=== PATIENT | female | born 1985 | race Caucasian/White ===

== ENCOUNTER 2017-12-05 09:12 | Emergency (ER) | payer BC ==
--- NOTE | 2017-12-05 10:12 | EDPHYS ---
Physician Documentation [facility] Name: Grazyna Barcenas Age: 32 yrs Sex: Female : 1985 Arrival Date: 12/05/2017 Time: 09:15 Bed 17 Private MD: Out, [facility] ED Physician Tonny Sgeura HPI: 12/05 10:01 This 32 yrs old Female presents to ER via Ambulatory with complaints of Cough.derek 10:01 The patient or guardian reports cough, that is constant. Onset: The symptoms/episode derek began/occurred today. Severity of symptoms: At their worst the symptoms were mild, moderate, in the emergency department the symptoms are unchanged. Modifying factors: The symptoms are alleviated by. Associated signs and symptoms: The patient has no apparent associated signs or symptoms. The patient has not experienced similar symptoms in the past. 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 - Social history:: Smoking status: Patient/guardian denies using tobacco. - Family history:: not pertinent. - Ebola Screening: : Patient denies travel to an Ebola-affected area in the 21 days before illness onset. ROS: 10:01 Constitutional: Negative for fever, chills, and weight loss, Eyes: Negative for injury, derek pain, redness, and discharge, ENT: Negative for injury, pain, and discharge, Neck: Negative for injury, pain, and swelling, Cardiovascular: Negative for chest pain, palpitations, and edema, Abdomen/GI: Negative for abdominal pain, nausea, vomiting, diarrhea, and constipation, Back: Negative for injury and pain, : Negative for injury, bleeding, discharge, and swelling, MS/Extremity: Negative for injury and deformity, Skin: Negative for injury, rash, and discoloration, Neuro: Negative for headache, weakness, numbness, tingling, and seizure, Psych: Negative for depression, anxiety, suicide ideation, homicidal ideation, and hallucinations, Allergy/Immunology: Negative for hives, rash, and allergies, Endocrine: Negative for neck swelling, polydipsia, polyuria, polyphagia, and marked weight changes, Hematologic/Lymphatic: Negative for swollen nodes, abnormal bleeding, and unusual bruising. 10:01 Respiratory: Positive for cough, shortness of breath, on exertion. Exam: 10:01 Constitutional: This is a well developed, well nourished patient who is awake, alert, derek and in no acute distress. Head/Face: Normocephalic, atraumatic. Eyes: Pupils equal round and reactive to light, extra-ocular motions intact. Lids and lashes normal. Conjunctiva and sclera are non-icteric and not injected. Cornea within normal limits. Periorbital areas with no swelling, redness, or edema. ENT: Nares patent. No nasal discharge, no septal abnormalities noted. Tympanic membranes are normal and external auditory canals are clear. Oropharynx with no redness, swelling, or masses, exudates, or evidence of obstruction, uvula midline. Mucous membranes moist. Neck: Trachea midline, no thyromegaly or masses palpated, and no cervical lymphadenopathy. Supple, full range of motion without nuchal rigidity, or vertebral point tenderness. No Meningismus. Chest/axilla: Normal chest wall appearance and motion. Nontender with no deformity. No lesions are appreciated. Cardiovascular: Regular rate and rhythm with a normal S1 and S2. No gallops, murmurs, or rubs. Normal PMI, no JVD. No pulse deficits. Respiratory: Lungs have equal breath sounds bilaterally, clear to auscultation and percussion. No rales, rhonchi or wheezes noted. No increased work of breathing, no retractions or nasal flaring. Abdomen/GI: Soft, non-tender, with normal bowel sounds. No distension or tympany. No guarding or rebound. No evidence of tenderness throughout. Back: No spinal tenderness. No costovertebral tenderness. Full range of motion. Skin: Warm, dry with normal turgor. Normal color with no rashes, no lesions, and no evidence of cellulitis. MS/ Extremity: Pulses equal, no cyanosis. Neurovascular intact. Full, normal range of motion. Neuro: Awake and alert, GCS 15, oriented to person, place, time, and situation. Cranial nerves II-XII grossly intact. Motor strength 5/5 in all extremities. Sensory grossly intact. Cerebellar exam normal. Normal gait. Psych: Awake, alert, with orientation to person, place and time. Behavior, mood, and affect are within normal limits. 10:01 Musculoskeletal/extremity: DVT Exam: No signs of deep vein thrombosis. no pain, no swelling, no tenderness, negative Homans' sign noted on exam, no appreciated bluish discoloration, no erythema, no increased warmth. Vital Signs: 09:23 Weight 99.79 kg; Height 5 ft. 5 in. (165.10 cm); Pain 0/10; sv 09:26 BP 130 / 95; Pulse 106; Resp 20; Temp 98.3; Pulse Ox 96% on R/A; aj1 10:26 BP 122 / 75; Pulse 102; Resp 20; Pulse Ox 96% on R/A; aj1 09:23 Body Mass Index 36.61 (99.79 kg, 165.10 cm) sv MDM: 09:22 Patient medically screened. [facility] 10:04 Data reviewed: vital signs, nurses notes, lab test result(s), urinalysis, radiologic derek studies, plain films. 12/05 10:00 Order name: Urine Dipstick--Ancillary (enter results) 12/05 10:00 Order name: Urine --Ancillary (enter results) 12/05 09:25 Order name: Urine Dipstick-Ancillary (obtain specimen); Complete Time: 09:58 [facility] 12/05 09:25 Order name: Urine Test (obtain specimen); Complete Time: 09:58 [facility] 12/05 09:25 Order name: Chest Pa And Lat (2 Views) XRAY [facility] Administered Medications: 10:26 Drug: Zithromax 500 mg Route: PO; aj1 10:27 Follow up: Response: No adverse reaction aj1 Disposition: 12/05/17 10:11 Discharged to Home. Impression: Cough, Acute upper respiratory infection, unspecified. - Condition is Stable. - Discharge Instructions: Upper Respiratory Infection, Adult, Cool Mist Vaporizers, Cough, Adult, [id number], Cough, Adult. - Prescriptions for Zofran 4 mg Oral Tablet - take 1 tablet by ORAL route every 12 hours As needed; 20 tablet. Albuterol Sulfate 90 mcg/actuation - inhale 1-2 puff by INHALATION route every 4-6 hours; 1 Inhaler. Guaifenesin AC 10- 100 mg/5 mL Oral Liquid - take 10 milliliter by ORAL route every 4 hours As needed; 240 milliliter. Zithromax 500 mg Oral Tablet - take 1 tablet by ORAL route once daily for 5 days; 5 tablet. - Medication Reconciliation Form, Thank You Letter, Antibiotic Education, Prescription Opioid Use form. - Follow up: Private Physician; When: 2 - 3 days; Reason: Recheck today's complaints, Re-evaluation by your physician. Follow up: Ronnie Gutierrez MD; When: 2 - 3 days; Reason: Recheck today's complaints, Re-evaluation by your physician. - Problem is new. - Symptoms have improved. Signatures: Dispatcher [employer] EDMS Charito He RN RN aj1 Ivette Cantu RN RN sv Anderson, Corey, MD MD cha Corrections: (The following items were deleted from the chart) 10:18 10:11 12/05/2017 10:11 Discharged to Home. Impression: Cough; Acute upper respiratory derek infection, unspecified. Condition is Stable. Forms are Medication Reconciliation Form, Thank You Letter, Antibiotic Education, Prescription Opioid Use. Follow up: Private Physician; When: 2 - 3 days; Reason: Recheck today's complaints, Re-evaluation by your physician. Problem is new. Symptoms have improved. [facility] 10:28 10:18 12/05/2017 10:11 Discharged to Home. Impression: Cough; Acute upper respiratory aj1 infection, unspecified. Condition is Stable. Discharge Instructions: Upper Respiratory Infection, Adult, Cool Mist Vaporizers, Cough, Adult, [id number], Cough, Adult. Prescriptions for Zofran 4 mg Oral Tablet - take 1 tablet by ORAL route every 12 hours As needed; 20 tablet, Albuterol Sulfate 90 mcg/actuation - inhale 1-2 puff by INHALATION route every 4-6 hours; 1 Inhaler, Guaifenesin AC 10-100 mg/5 mL Oral Liquid - take 10 milliliter by ORAL route every 4 hours As needed; 240 milliliter, Zithromax 500 mg Oral Tablet - take 1 tablet by ORAL route once daily for 5 days; 5 tablet. and Forms are Medication Reconciliation Form, Thank You Letter, Antibiotic Education, Prescription Opioid Use. Follow up: Private Physician; When: 2 - 3 days; Reason: Recheck today's complaints, Re-evaluation by your physician. Follow up: Ronnie Gutierrez; When: 2 - 3 days; Reason: Recheck today's complaints, Re-evaluation by your physician. Problem is new. Symptoms have improved. derek
--- NOTE | 2017-12-05 10:12 | ER ---
Nurse's Notes [facility] Name: Grazyna Barcenas Age: 32 yrs Sex: Female : 1985 Arrival Date: 12/05/2017 Time: 09:15 Bed 17 Private MD: Out, [facility] Diagnosis: Cough;Acute upper respiratory infection, unspecified Presentation: 12/05 09:20 Presenting complaint: Patient states: "Haven't stopped coughing since 0400 today.". sv Transition of care: patient was not received from another setting of care. Onset of symptoms was December 05, 2017. Care prior to arrival: None. 09:20 Method Of Arrival: Ambulatory sv 09:20 Acuity: LYDIA 3 sv 10:27 Risk Assessment: Do you want to hurt yourself or someone else? Patient reports no aj1 desire to harm self or others. Initial Sepsis Screen: Does the patient meet any 2 criteria? No. Patient's initial sepsis screen is negative. Does the patient have a suspected source of infection? No. Patient's initial sepsis screen is negative. 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 - Social history:: Smoking status: Patient/guardian denies using tobacco. - Family history:: not pertinent. - Ebola Screening: : Patient denies travel to an Ebola-affected area in the 21 days before illness onset. Screenin:26 Abuse screen: Denies threats or abuse. Denies injuries from another. Nutritional aj1 screening: No deficits noted. Tuberculosis screening: No symptoms or risk factors identified. 10:26 Fall Risk None identified. aj1 Assessment: 09:26 General: Appears in no apparent distress. uncomfortable, Behavior is calm, cooperative, aj1 appropriate for age. Pain: Complains of pain in chest and abdomen Pain does not radiate. Pain currently is 2 out of 10 on a pain scale. Quality of pain is described as soreness. Neuro: Level of Consciousness is awake, alert, obeys commands, Oriented to person, place, time, situation, Speech is normal, Facial symmetry appears normal. Cardiovascular: Patient's skin is warm and dry. Respiratory: Reports shortness of breath when coughing cough that is hacking, persistent Airway is patent Respiratory effort is even, unlabored, Respiratory pattern is regular, symmetrical, Breath sounds are coarse in left posterior lower lobe and right posterior lower lobe. GI: Abdomen is non-distended, Reports diarrhea, Patient currently denies nausea, vomiting. : No signs and/or symptoms were reported regarding the genitourinary system. EENT: No signs and/or symptoms were reported regarding the EENT system. Derm: No signs and/or symptoms reported regarding the dermatologic system. Skin is pink, warm \\T\\ dry. normal. Musculoskeletal: No signs and/or symptoms reported regarding the musculoskeletal system. Circulation, motion, and sensation intact. 10:26 Reassessment: Patient appears in no apparent distress at this time. No changes from aj1 previously documented assessment. Patient and/or family updated on plan of care and expected duration. Pain level reassessed. Patient is alert, oriented x 3, equal unlabored respirations, skin warm/dry/pink. Vital Signs: 09:23 Weight 99.79 kg; Height 5 ft. 5 in. (165.10 cm); Pain 0/10; sv 09:26 BP 130 / 95; Pulse 106; Resp 20; Temp 98.3; Pulse Ox 96% on R/A; aj1 10:26 BP 122 / 75; Pulse 102; Resp 20; Pulse Ox 96% on R/A; aj1 09:23 Body Mass Index 36.61 (99.79 kg, 165.10 cm) sv ED Course: 09:15 Patient arrived in ED. sb2 09:15 Out, [facility] is Private Physician. sb2 09:21 Charito He, SAIDA is Primary Nurse. aj1 09:22 Tonny Segura MD is Attending Physician. derek 09:22 Triage completed. sv 09:23 Arm band placed on right wrist. sv 09:26 Patient has correct armband on for positive identification. Bed in low position. Call aj1 light in reach. Side rails up X 1. 09:26 No provider procedures requiring assistance completed. aj1 09:32 Patient moved to radiology via wheelchair. jb2 09:36 X-ray completed. Patient tolerated procedure well. Patient moved back from radiology. jb2 09:37 Chest Pa And Lat (2 Views) XRAY In Process Unspecified. EDMS 09:59 Pulse ox on. NIBP on. mh5 09:59 Urine collected: clean catch specimen, clear. 5 10:18 Ronnie Gutierrez MD is Referral Physician. [facility] 10:26 Patient did not have IV access during this emergency room visit. aj1 Administered Medications: 10:26 Drug: Zithromax 500 mg Route: PO; aj1 10:27 Follow up: Response: No adverse reaction aj1 Outcome: 10:11 Discharge ordered by . [facility] 10:26 Discharged to home ambulatory. aj1 10:26 Condition: good 10:26 Discharge instructions given to patient, Instructed on discharge instructions, follow up and referral plans. no drinking with medication, no driving heavy equipment, medication usage, Demonstrated understanding of instructions, follow-up care, medications, Prescriptions given X 4. 10:28 Patient left the ED. aj1 Signatures: Dispatcher [employer] Charito Chen RN RN aj1 Ivette Cantu, Tonny Saavedra RN, MD MD cha Buechter, Jesse jb2 Martinez, Maria Margret Andrews2
--- NOTE | 2017-12-05 10:17 | RAD REPORT ---
EXAM DESCRIPTION: Naresh Hinton (2 Views)12/05/2017 9:39 am CLINICAL HISTORY: Cough COMPARISON: 2012 PET-CT scan and 2017 chest x-ray FINDINGS: The lungs appear clear of acute infiltrate. The patient's previously described [address] nodule within the inferior right lower lobe seen on the 2012 exam is not visualized on the curren t exam but could be missed secondary to its location. The heart is normal size IMPRESSION: No acute abnormalities displayed
[2017-12-05 10:24] LABS: Urine Blood NEGATIVE (NEG); Urine Glucose NEGATIVE (NEG); Urine Protein NEGATIVE (NEG); Urine Specific Gravity 1.015 (1.005-1.030); Urine pH 6.5 (5.0-7.0)
[2017-12-05] MEDS ORDERED: AZITHROMYCIN 250 MG TAB ONE (10:24)
== END 2017-12-05 10:28 | disposition home or self-care (01) ==
LOC: ER 09:12
DX: R05 Cough (principal); J06.9 Acute upper respiratory infection, unspecified; Z88.8 Allergy status to other drugs, medicaments and biological substances
CPT/HCPCS: 71046; 81003; 81025; 99284

== ENCOUNTER 2018-05-16 02:16 | Emergency (ER) | payer BC ==
[2018-05-16] MEDS ORDERED: IBUPROFEN 400 MG TAB ONE (03:00)
[2018-05-16] MEDS ORDERED: IBUPROFEN 200 MG TAB PO ONE (03:01)
[2018-05-16] MEDS ORDERED: ACETAMINOPHEN 500 MG TAB ONE (03:01)
--- NOTE | 2018-05-16 03:32 | EDPHYS ---
Physician Documentation [facility] Name: Grazyna Barcenas Age: 32 yrs Sex: Female : 1985 Arrival Date: 05/16/2018 Time: 02:21 Bed 18 Private MD: ED Physician Curtis Mast HPI: 05/16 02:50 This 32 yrs old Female presents to ER via Ambulatory with complaints of Hand wa Pain. 02:50 The patient or guardian reports pain. The complaints affect the knuckles of 2nd and 3rd wa fingers. Context: The problem was sustained at work, resulted from an unknown cause. Onset: The symptoms/episode began/occurred 3 day(s) ago. Modifying factors: The symptoms are alleviated by nothing, the symptoms are aggravated by movement. Associated signs and symptoms: The patient has no apparent associated signs or symptoms. Severity of symptoms: At their worst the symptoms were moderate, in the emergency department the symptoms are unchanged. The patient has not experienced similar symptoms in the past. The patient has not recently seen a physician. 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 - Social history:: Smoking status: Patient/guardian denies using tobacco. - Ebola Screening: : No symptoms or risks identified at this time. - Family history:: not pertinent. - Hospitalizations: : No recent hospitalization is reported. ROS: 02:52 Constitutional: Negative for fever, chills, and weight loss, Eyes: Negative for injury, wa pain, redness, and discharge, ENT: Negative for injury, pain, and discharge, Neck: Negative for injury, pain, and swelling, Cardiovascular: Negative for chest pain, palpitations, and edema, Respiratory: Negative for shortness of breath, cough, wheezing, and pleuritic chest pain, Abdomen/GI: Negative for abdominal pain, nausea, vomiting, diarrhea, and constipation, Back: Negative for injury and pain, : Negative for injury, bleeding, discharge, and swelling, Skin: Negative for injury, rash, and discoloration, Neuro: Negative for headache, weakness, numbness, tingling, and seizure, Psych: Negative for depression, anxiety, suicide ideation, homicidal ideation, and hallucinations. 02:52 MS/extremity: Positive for pain, tenderness, of the knuckle of 2nd and 3rd fingers on the R hand. 02:52 All other systems are negative. Exam: 02:53 Constitutional: This is a well developed, well nourished patient who is awake, alert, wa and in no acute distress. Head/Face: Normocephalic, atraumatic. Eyes: Pupils equal round and reactive to light, extra-ocular motions intact. Lids and lashes normal. Conjunctiva and sclera are non-icteric and not injected. Cornea within normal limits. Periorbital areas with no swelling, redness, or edema. ENT: Nares patent. No nasal discharge, no septal abnormalities noted. Tympanic membranes are normal and external auditory canals are clear. Oropharynx with no redness, swelling, or masses, exudates, or evidence of obstruction, uvula midline. Mucous membranes moist. Neck: Trachea midline, no thyromegaly or masses palpated, and no cervical lymphadenopathy. Supple, full range of motion without nuchal rigidity, or vertebral point tenderness. No Meningismus. Chest/axilla: Normal chest wall appearance and motion. Nontender with no deformity. No lesions are appreciated. Cardiovascular: Regular rate and rhythm with a normal S1 and S2. No gallops, murmurs, or rubs. Normal PMI, no JVD. No pulse deficits. Respiratory: Lungs have equal breath sounds bilaterally, clear to auscultation and percussion. No rales, rhonchi or wheezes noted. No increased work of breathing, no retractions or nasal flaring. Abdomen/GI: Soft, non-tender, with normal bowel sounds. No distension or tympany. No guarding or rebound. No evidence of tenderness throughout. Back: No spinal tenderness. No costovertebral tenderness. Full range of motion. Skin: Warm, dry with normal turgor. Normal color with no rashes, no lesions, and no evidence of cellulitis. Neuro: Awake and alert, GCS 15, oriented to person, place, time, and situation. Cranial nerves II-XII grossly intact. Motor strength 5/5 in all extremities. Sensory grossly intact. Cerebellar exam normal. Normal gait. Psych: Awake, alert, with orientation to person, place and time. Behavior, mood, and affect are within normal limits. 02:53 Musculoskeletal/extremity: Extremities: grossly normal except: noted in the MCP 2nd and 3rd finger: pain, tenderness, tenderness. Vital Signs: 02:35 BP 120 / 82; Pulse 70; Resp 17 S; Temp 98.5(O); Pulse Ox 99% on R/A; Weight 99.79 kg jd3 (R); Height 5 ft. 5 in. (165.10 cm) (R); Pain 10/10; 03:55 BP 112 / 77; Pulse 72; Resp 16 S; Pulse Ox 99% on R/A; jd3 02:35 Body Mass Index 36.61 (99.79 kg, 165.10 cm) jd3 MDM: 02:43 Patient medically screened. tn 02:54 Differential diagnosis: closed fracture, contusion, tendonitis, pain control. check tn x-rays. reassess. 03:29 Data reviewed: vital signs, nurses notes, radiologic studies. Test interpretation: by tn ED physician or midlevel provider: R hand x-ray: no acute process. Response to treatment: the patient's symptoms have markedly improved after treatment. 05/16 02:49 Order name: Hand Right 3 View XRAY tn 05/16 03:34 Order name: Splint - Wrist: place on Right wrist and hand; Complete Time: 03:37 tn Administered Medications: 02:55 Drug: Motrin 600 mg Route: PO; jd3 03:56 Follow up: Response: No adverse reaction jd3 02:55 Drug: Tylenol 1000 mg Route: PO; jd3 03:56 Follow up: Response: No adverse reaction jd3 Disposition: 05/16/18 03:31 Discharged to Home. Impression: Acute Right Hand Pain. - Condition is Stable. - Prescriptions for Ibuprofen 600 mg Oral Tablet - take 1 tablet by ORAL route every 6 hours As needed take with food; 30 tablet. - Medication Reconciliation Form, Thank You Letter, Antibiotic Education, Prescription Opioid Use, Work release form form. - Follow up: Krishna Mcleod MD; When: 2 - 3 days; Reason: Recheck today's complaints. - Problem is new. - Symptoms have improved. - Notes: wear splint for comfort. follow up with the bone doctor as discussed for further evaluation Signatures: Dispatcher [employer] EDMS Curtis Mast MD MD wa Davies, Jonathon RN RN jd3 Corrections: (The following items were deleted from the chart) 03:56 03:31 05/16/2018 03:31 Discharged to Home. Impression: Acute Right Hand Pain. Condition jd3 is Stable. Forms are Medication Reconciliation Form, Thank You Letter, Antibiotic Education, Prescription Opioid Use. Follow up: Krishna Mcleod; When: 2 - 3 days; Reason: Recheck today's complaints. Problem is new. Symptoms have improved. aleksandar
--- NOTE | 2018-05-16 03:32 | ER ---
Nurse's Notes [facility] Name: Grazyna Barcenas Age: 32 yrs Sex: Female : 1985 Arrival Date: 05/16/2018 Time: 02:21 Bed 18 Private MD: Diagnosis: Acute Right Hand Pain Presentation: 05/16 02:31 Presenting complaint: Patient states: "Last Tuesday I was at work and it just all of a jd3 sudden felt like I pulled something in my right hand. the pain has gotten progressively worse to the point that today I can't pick anything up and it gave out on me. 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 Transition of care: patient was not received from another setting of care. Onset of symptoms was May 16, 2018. Risk Assessment: Do you want to hurt yourself or someone else? Patient reports no desire to harm self or others. Initial Sepsis Screen: Does the patient meet any 2 criteria? No. Patient's initial sepsis screen is negative. Does the patient have a suspected source of infection? No. Patient's initial sepsis screen is negative. Care prior to arrival: None. 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 - Social history:: Smoking status: Patient/guardian denies using tobacco. - Ebola Screening: : No symptoms or risks identified at this time. - Family history:: not pertinent. - Hospitalizations: : No recent hospitalization is reported. Screenin:44 Abuse screen: Denies threats or abuse. Nutritional screening: No deficits noted. jd3 Tuberculosis screening: No symptoms or risk factors identified. Fall Risk Ambulatory Aid- None/Bed Rest/Nurse Assist (0 pts). Gait- Normal/Bed Rest/Wheelchair (0 pts) Mental Status- Oriented to own ability (0 pts). Total Alfonso Fall Scale indicates No Risk (0-24 pts). Assessment: 02:36 General: Appears in no apparent distress. uncomfortable, Behavior is calm, cooperative, jd3 appropriate for age. Pain: Complains of pain in right hand Quality of pain is described as sharp, tender, Aggravated by increased activity, repositioning. Neuro: Level of Consciousness is awake, alert, obeys commands, Oriented to person, place, time, situation. Cardiovascular: Capillary refill < 3 seconds Patient's skin is warm and dry. Respiratory: Airway is patent Respiratory effort is even, unlabored, Respiratory pattern is regular, symmetrical. GI: No signs and/or symptoms were reported involving the gastrointestinal system. : No signs and/or symptoms were reported regarding the genitourinary system. EENT: No signs and/or symptoms were reported regarding the EENT system. Derm: Skin is intact, Skin is dry, Skin is normal, Skin temperature is warm. Musculoskeletal: Circulation, motion, and sensation intact. Range of motion: limited in right hand Swelling present in right hand. 03:55 Reassessment: Patient appears in no apparent distress at this time. Patient and/or jd3 family updated on plan of care and expected duration. Pain level reassessed. Patient is alert, oriented x 3, equal unlabored respirations, skin warm/dry/pink. Vital Signs: 02:35 BP 120 / 82; Pulse 70; Resp 17 S; Temp 98.5(O); Pulse Ox 99% on R/A; Weight 99.79 kg jd3 (R); Height 5 ft. 5 in. (165.10 cm) (R); Pain 10/10; 03:55 BP 112 / 77; Pulse 72; Resp 16 S; Pulse Ox 99% on R/A; jd3 02:35 Body Mass Index 36.61 (99.79 kg, 165.10 cm) jd3 ED Course: 02:21 Patient arrived in ED. am2 02:31 Maged Yung RN is Primary Nurse. jd3 02:34 Triage completed. jd3 02:36 Arm band placed on. jd3 02:43 Curtis Mast MD is Attending Physician. wa 02:44 Patient has correct armband on for positive identification. Bed in low position. Call jd3 light in reach. Side rails up X 1. 03:30 Krishna Mcleod MD is Referral Physician. 03:53 Hand Right 3 View XRAY In Process Unspecified. EDMS 03:55 No provider procedures requiring assistance completed. Patient did not have IV access jd3 during this emergency room visit. 03:56 Velcro wrist splint applied to right wrist. jd3 Administered Medications: 02:55 Drug: Motrin 600 mg Route: PO; jd3 03:56 Follow up: Response: No adverse reaction jd3 02:55 Drug: Tylenol 1000 mg Route: PO; jd3 03:56 Follow up: Response: No adverse reaction jd3 Outcome: 03:31 Discharge ordered by . 03:55 Discharged to home ambulatory. jd3 03:55 Condition: stable 03:55 Discharge instructions given to patient, Instructed on discharge instructions, follow up and referral plans. medication usage, Demonstrated understanding of instructions, follow-up care, medications, Prescriptions given X 1. 03:56 Patient left the ED. jd3 Signatures: Dispatcher [employer] EDWA Cristina Nicholas am2 Curtis Mast MD MD wa Davies, Jonathon, RN RN jd3
--- NOTE | 2018-05-16 08:34 | RAD REPORT ---
EXAM DESCRIPTION: RAD - Hand Right 3 View - 05/16/2018 3:52 am CLINICAL HISTORY: Nontraumatic right hand pain. Patient localizes the pain to the second and third M CP joint region COMPARISON: None. FINDINGS: No fracture is identified. There is no dislocation or periosteal reaction noted. No joint space narrowing, spurring or erosive change at any of the MCP joints. Patient has a congenitally guilherme rtened first distal phalanx. No IP joint space narrowing or acute finding. Soft tissues over the dorsum of the third MCP joint are prominent. No air or foreign body in the soft tissues. IMPRESSION: Mild soft tissue swelling in the region of the third MCP joint. No acute or suspicious b one or joint finding.
== END 2018-05-16 03:56 | disposition home or self-care (01) ==
LOC: ER 02:16
DX: M79.641 Pain in right hand (principal); M79.9 Soft tissue disorder, unspecified; X58.XXXA Exposure to other specified factors, initial encounter; Y99.0 Civilian activity done for income or pay
CPT/HCPCS: 99284

== ENCOUNTER 2018-11-10 21:17 | Emergency (ER) | payer BC ==
[2018-11-10] MEDS ORDERED: IBUPROFEN 100 MG/5 ML UCUP ONE (22:20)
[2018-11-10] MEDS ORDERED: DEXAMETHASONE 10 MG/ML VIAL ONE (22:20)
--- NOTE | 2018-11-10 22:39 | ER ---
Nurse's Notes [facility] Name: Grazyna Barcenas Age: 33 yrs Sex: Female : 1985 Arrival Date: 11/10/2018 Time: 21:20 Bed 15 Private MD: Out, [facility] Diagnosis: Acute pharyngitis Presentation: 11/10 21:42 Presenting complaint: Patient states: via written note itchy throat not bad last two ed1 days. lil dirare. This morning like this can't talk, no food, hurts to swollow, forced water down to stay hydrated. Fever at 7:30 pm took asprin, still cold. Transition of care: patient was not received from another setting of care. Onset of symptoms was November 10, 2018. Risk Assessment: Do you want to hurt yourself or someone else? Patient reports no desire to harm self or others. Initial Sepsis Screen: Does the patient meet any 2 criteria? No. Patient's initial sepsis screen is negative. Does the patient have a suspected source of infection? No. Patient's initial sepsis screen is negative. Care prior to arrival: Medication(s) given: ASA. 21:42 Method Of Arrival: Ambulatory ed1 21:42 Acuity: LYDIA 4 ed1 Triage Assessment: 21:44 General: Appears uncomfortable, Behavior is calm, cooperative. Pain: Complains of pain ed1 in throat Pain currently is 10 out of 10 on a pain scale. EENT: Throat is reddened. Neuro: Level of Consciousness is awake, alert, obeys commands, Oriented to person, place, time, situation. Cardiovascular: Denies chest pain, Heart tones S1 S2 present. Respiratory: Airway is patent Respiratory effort is even, unlabored, Respiratory pattern is regular, symmetrical, Breath sounds are clear bilaterally. GI: No signs and/or symptoms were reported involving the gastrointestinal system. : No signs and/or symptoms were reported regarding the genitourinary system. Derm: Skin is intact, is healthy with good turgor, Skin is dry, Skin is normal, Skin temperature is warm. Musculoskeletal: Circulation, motion, and sensation intact. Range of motion: intact in all extremities. 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 - Social history:: Smoking status: Patient/guardian denies using tobacco. - Ebola Screening: : Patient negative for fever greater than or equal to 101.5 degrees Fahrenheit, and additional compatible Ebola Virus Disease symptoms Patient denies exposure to infectious person Patient denies travel to an Ebola-affected area in the 21 days before illness onset No symptoms or risks identified at this time. Screenin:45 Abuse screen: Denies threats or abuse. Denies injuries from another. Nutritional ed1 screening: No deficits noted. Tuberculosis screening: No symptoms or risk factors identified. Fall Risk None identified. Assessment: 21:45 General: See triage assessment. Respiratory: Airway is patent Respiratory effort is ed1 even, unlabored, Respiratory pattern is regular, symmetrical, Breath sounds are clear bilaterally. 23:17 Reassessment: Patient appears in no apparent distress at this time. Patient and/or ed1 family updated on plan of care and expected duration. Pain level reassessed. Patient is alert, oriented x 3, equal unlabored respirations, skin warm/dry/pink. Patient states feeling better. Patient states symptoms have improved. Vital Signs: 21:44 BP 128 / 74; Pulse 87; Resp 18; Temp 98.3; Pulse Ox 96% on R/A; Weight 90.72 kg; Height ed1 5 ft. 5 in. (165.10 cm); Pain 10/10; 23:17 BP 124 / 87; Pulse 73; Resp 19; Temp 98.1(TE); Pulse Ox 99% on R/A; Pain 10/10; ed1 21:44 Body Mass Index 33.28 (90.72 kg, 165.10 cm) ed1 ED Course: 21:20 Patient arrived in ED. es 21:20 Out, of [facility] is Private Physician. es 21:34 Crys Sterling F[facility]-C [facility]. snw 21:34 Aj Mejia MD is Attending Physician. snw 21:41 Guidry, Charmaine, RN is Primary Nurse. ed1 21:44 Triage completed. ed1 21:44 Arm band placed on. ed1 21:45 Patient has correct armband on for positive identification. Bed in low position. Call ed1 light in reach. 23:17 No provider procedures requiring assistance completed. Patient did not have IV access ed1 during this emergency room visit. Administered Medications: 22:08 Drug: Decadron - Dexamethasone 10 mg {Note: Given PO per order.} Route: IVP; Site: ed1 Other; 22:30 Follow up: Response: No adverse reaction ed1 22:08 Drug: Motrin Suspension 10 ml Route: PO; ed1 22:30 Follow up: Response: No adverse reaction ed1 Outcome: 22:38 Discharge ordered by MD. souza 23:17 Discharged to home ambulatory. ed1 23:17 Condition: good 23:17 Discharge instructions given to patient, Instructed on discharge instructions, follow up and referral plans. Demonstrated understanding of instructions, follow-up care. 23:18 Patient left the ED. ed1 Signatures: Crys Sterling FNP-C MOLD REPAIR TECHNICIAN-[place] Lara Dillon Erika, RN RN ed1
--- NOTE | 2018-11-10 22:39 | EDPHYS ---
Physician Documentation [facility] Name: Grazyna Barcenas Age: 33 yrs Sex: Female : 1985 Arrival Date: 11/10/2018 Time: 21:20 Bed 15 Private MD: Out, [facility] ED Physician Aj Mejia HPI: 11/10 22:44 This 33 yrs old Female presents to ER via Ambulatory with complaints of Sore snw Throat. 22:44 The patient presents with sore throat. The patient describes throat pain as raw, snw scratchy. Onset: The symptoms/episode began/occurred suddenly, 4 day(s) ago, and became persistent. Severity of symptoms: At their worst the symptoms were moderate. Associated signs and symptoms: Pertinent positives: dysphagia, fever, flu-like symptoms, nausea, Sore throat vomiting. The patient has not experienced similar symptoms in the past, but family has similar symptoms. The patient has not recently seen a physician. 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 - Social history:: Smoking status: Patient/guardian denies using tobacco. - Ebola Screening: : Patient negative for fever greater than or equal to 101.5 degrees Fahrenheit, and additional compatible Ebola Virus Disease symptoms Patient denies exposure to infectious person Patient denies travel to an Ebola-affected area in the 21 days before illness onset No symptoms or risks identified at this time. ROS: 22:42 Eyes: Negative for injury, pain, redness, and discharge, Neck: Negative for injury, snw pain, and swelling, Cardiovascular: Negative for chest pain, palpitations, and edema, Respiratory: Negative for shortness of breath, cough, wheezing, and pleuritic chest pain, Abdomen/GI: Negative for abdominal pain, positive for nausea, vomiting, diarrhea, no constipation, Back: Negative for injury and pain, : Negative for injury, bleeding, discharge, and swelling, MS/Extremity: Negative for injury and deformity, Skin: Negative for injury, rash, and discoloration, Neuro: Negative for headache, weakness, numbness, tingling, and seizure. 22:42 Constitutional: Positive for body aches, malaise, poor PO intake. 22:42 ENT: Positive for sinus congestion, sore throat. Exam: 22:42 Constitutional: This is a well developed, well nourished patient who is awake, alert, snw and in no acute distress. Head/Face: Normocephalic, atraumatic. Eyes: Pupils equal round and reactive to light, extra-ocular motions intact. Lids and lashes normal. Conjunctiva and sclera are non-icteric and not injected. Cornea within normal limits. Periorbital areas with no swelling, redness, or edema. Neck: Trachea midline, no thyromegaly or masses palpated, and no cervical lymphadenopathy. Supple, full range of motion without nuchal rigidity, or vertebral point tenderness. No Meningismus. Chest/axilla: Normal chest wall appearance and motion. Nontender with no deformity. No lesions are appreciated. Cardiovascular: Regular rate and rhythm with a normal S1 and S2. No gallops, murmurs, or rubs. Normal PMI, no JVD. No pulse deficits. Respiratory: Lungs have equal breath sounds bilaterally, clear to auscultation and percussion. No rales, rhonchi or wheezes noted. No increased work of breathing, no retractions or nasal flaring. Abdomen/GI: Soft, non-tender, with normal bowel sounds. No distension or tympany. No guarding or rebound. No evidence of tenderness throughout. Back: No spinal tenderness. No costovertebral tenderness. Full range of motion. Skin: Warm, dry with normal turgor. Normal color with no rashes, no lesions, and no evidence of cellulitis. MS/ Extremity: Pulses equal, no cyanosis. Neurovascular intact. Full, normal range of motion. Neuro: Awake and alert, GCS 15, oriented to person, place, time, and situation. Cranial nerves II-XII grossly intact. Motor strength 5/5 in all extremities. Sensory grossly intact. Cerebellar exam normal. Normal gait. Psych: Awake, alert, with orientation to person, place and time. Behavior, mood, and affect are within normal limits. 22:42 ENT: External ear(s): are unremarkable, Ear canal(s): are normal, TM's: are normal, Nose: is normal, Posterior pharynx: erythema, that is moderate, that is marked, Voice: is normal. Vital Signs: 21:44 BP 128 / 74; Pulse 87; Resp 18; Temp 98.3; Pulse Ox 96% on R/A; Weight 90.72 kg; Height ed1 5 ft. 5 in. (165.10 cm); Pain 10/10; 23:17 BP 124 / 87; Pulse 73; Resp 19; Temp 98.1(TE); Pulse Ox 99% on R/A; Pain 10/10; ed1 21:44 Body Mass Index 33.28 (90.72 kg, 165.10 cm) ed1 MDM: 21:42 Patient medically screened. snw 22:43 Data reviewed: vital signs, nurses notes. Data interpreted: Pulse oximetry: on room air snw is 96 %. Interpretation: acceptable. Counseling: I had a detailed discussion with the patient and/or guardian regarding: the historical points, exam findings, and any diagnostic results supporting the discharge/admit diagnosis, lab results, the need for outpatient follow up, to return to the emergency department if symptoms worsen or persist or if there are any questions or concerns that arise at home. 11/10 21:39 Order name: Strep; Complete Time: 22:20 snw 11/10 21:52 Order name: Flu; Complete Time: 22:37 ed1 11/10 22:22 Order name: Throat Culture EDMS Administered Medications: 22:08 Drug: Decadron - Dexamethasone 10 mg {Note: Given PO per order.} Route: IVP; Site: ed1 Other; 22:30 Follow up: Response: No adverse reaction ed1 22:08 Drug: Motrin Suspension 10 ml Route: PO; ed1 22:30 Follow up: Response: No adverse reaction ed1 Disposition: 11/10/18 22:38 Discharged to Home. Impression: Acute pharyngitis. - Condition is Stable. - Discharge Instructions: Fever, Adult, Pharyngitis, Rehydration, Adult. - Work release form, Medication Reconciliation Form, Thank You Letter, Antibiotic Education, Prescription Opioid Use form. - Follow up: Private Physician; When: 2 - 3 days; Reason: Recheck today's complaints, Continuance of care, Re-evaluation by your physician. Follow up: Emergency Department; When: As needed; Reason: Worsening of condition. Signatures: Dispatcher [employer] Crys Baird, KAREY-C PUBLIC ADDRESS ANNOUNCER-[place] Charmaine Guidry, RN RN ed1 Corrections: (The following items were deleted from the chart) 23:18 22:38 11/10/2018 22:38 Discharged to Home. Impression: Acute pharyngitis. Condition is ed1 Stable. Forms are Medication Reconciliation Form, Thank You Letter, Antibiotic Education, Prescription Opioid Use. Follow up: Private Physician; When: 2 - 3 days; Reason: Recheck today's complaints, Continuance of care, Re-evaluation by your physician. Follow up: Emergency Department; When: As needed; Reason: Worsening of condition. snw
== END 2018-11-10 23:18 | disposition home or self-care (01) ==
LOC: ER 21:17
DX: J02.9 Acute pharyngitis, unspecified (principal); Z88.8 Allergy status to other drugs, medicaments and biological substances
CPT/HCPCS: 87070; 87081; 87804; 96374; 99283; J1100

== ENCOUNTER 2018-11-22 19:31 | Emergency (ER) | payer BC ==
--- NOTE | 2018-11-22 20:35 | RAD REPORT ---
EXAM DESCRIPTION: RAD - Foot Left 3 View - 11/22/2018 8:10 pm CLINICAL HISTORY: Left foot pain following trauma COMPARISON: None. FINDINGS: No fracture, dislocation or periosteal reaction. No acute or destructive bony process. Sm all plantar spur is present. No air or foreign body in the soft tissues. IMPRESSION: Negative left foot examination for acute finding.
--- NOTE | 2018-11-22 20:44 | EDPHYS ---
Physician Documentation [facility] Name: Grazyna Barcenas Age: 33 yrs Sex: Female : 1985 Arrival Date: 11/22/2018 Time: 19:36 Bed 19 Private MD: ED Physician Nir Martinez HPI: 11/22 23:59 This 33 yrs old Female presents to ER via Wheelchair with complaints of Foot snw Injury. 23:59 The patient presents with decreased range of motion, pain, that is acute. The snw complaints affect the dorsum of left foot. Context: The problem was sustained at home, resulted from the patient falling, down stairs, the patient can partially bear weight, must have assistance, Problem is a result from a previous injury: No. Onset: The symptoms/episode began/occurred suddenly, today. Associated signs and symptoms: Pertinent positives: swelling, of the dorsum of left foot. Severity of symptoms: At their worst the symptoms were moderate. It is unknown whether or not the patient has had similar symptoms in the past. It is unknown whether or not the patient has recently seen a physician. pt up on a ladder, ladder fell and pt landed on both feet and then fell to left and sat. Pt states at first she was able to bear weight and walk but then she took a shower and was resting and was unable to bear weight when she stood again. 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 - Social history:: Smoking status: Patient/guardian denies using tobacco. - Ebola Screening: : No symptoms or risks identified at this time. ROS: 23:58 Constitutional: Negative for fever, chills, and weight loss, Eyes: Negative for injury, snw pain, redness, and discharge, ENT: Negative for injury, pain, and discharge, Neck: Negative for injury, pain, and swelling, Cardiovascular: Negative for chest pain, palpitations, and edema, Respiratory: Negative for shortness of breath, cough, wheezing, and pleuritic chest pain, Abdomen/GI: Negative for abdominal pain, nausea, vomiting, diarrhea, and constipation, Back: Negative for injury and pain, : Negative for injury, bleeding, discharge, and swelling, Skin: Negative for injury, rash, and discoloration, Neuro: Negative for headache, weakness, numbness, tingling, and seizure. 23:58 MS/extremity: Positive for injury or acute deformity, decreased range of motion, pain, swelling, of the left foot. Exam: 23:57 Constitutional: This is a well developed, well nourished patient who is awake, alert, snw and in no acute distress. Head/Face: Normocephalic, atraumatic. Eyes: Pupils equal round and reactive to light, extra-ocular motions intact. Lids and lashes normal. Conjunctiva and sclera are non-icteric and not injected. Cornea within normal limits. Periorbital areas with no swelling, redness, or edema. ENT: Nares patent. No nasal discharge, no septal abnormalities noted. Tympanic membranes are normal and external auditory canals are clear. Oropharynx with no redness, swelling, or masses, exudates, or evidence of obstruction, uvula midline. Mucous membranes moist. Neck: Trachea midline, no thyromegaly or masses palpated, and no cervical lymphadenopathy. Supple, full range of motion without nuchal rigidity, or vertebral point tenderness. No Meningismus. Chest/axilla: Normal chest wall appearance and motion. Nontender with no deformity. No lesions are appreciated. Cardiovascular: Regular rate and rhythm with a normal S1 and S2. No gallops, murmurs, or rubs. Normal PMI, no JVD. No pulse deficits. Respiratory: Lungs have equal breath sounds bilaterally, clear to auscultation and percussion. No rales, rhonchi or wheezes noted. No increased work of breathing, no retractions or nasal flaring. Abdomen/GI: Soft, non-tender, with normal bowel sounds. No distension or tympany. No guarding or rebound. No evidence of tenderness throughout. Back: No spinal tenderness. No costovertebral tenderness. Full range of motion. Skin: Warm, dry with normal turgor. Normal color with no rashes, no lesions, and no evidence of cellulitis. Neuro: Awake and alert, GCS 15, oriented to person, place, time, and situation. Cranial nerves II-XII grossly intact. Motor strength 5/5 in all extremities. Sensory grossly intact. Cerebellar exam normal. Normal gait. Psych: Awake, alert, with orientation to person, place and time. Behavior, mood, and affect are within normal limits. 23:57 Musculoskeletal/extremity: Extremities: grossly normal except: noted in the dorsum of left foot: pain, ROM: intact in all extremities, Circulation is intact in all extremities. the dorsum of left foot Severe pain noted. Joints: All joints appear normal with full range of motion. Weight bearing: is unable to bear weight. Vital Signs: 19:39 BP 125 / 65; Pulse 101; Resp 18; Temp 99(TE); Pulse Ox 97% on R/A; Weight 90.72 kg; lp1 Height 5 ft. 5 in. (165.10 cm); Pain 10/10; 20:45 BP 134 / 73; Pulse 83; Resp 16; Pulse Ox 100% on R/A; jb4 19:39 Body Mass Index 33.28 (90.72 kg, 165.10 cm) lp1 MDM: 20:38 Patient medically screened. snw 23:58 Data reviewed: vital signs, nurses notes. Data interpreted: Pulse oximetry: on room air snw is 97 %. Interpretation: normal. Counseling: I had a detailed discussion with the patient and/or guardian regarding: the historical points, exam findings, and any diagnostic results supporting the discharge/admit diagnosis, radiology results, the need for outpatient follow up, to return to the emergency department if symptoms worsen or persist or if there are any questions or concerns that arise at home. Special discussion: Based on the history and exam findings, there is no indication for further emergent testing or inpatient evaluation. I discussed with the patient/guardian the need to see the orthopedic surgeon for further evaluation of the symptoms. 11/22 19:44 Order name: Foot Left 3 View XRAY; Complete Time: 20:38 snw 11/22 20:43 Order name: Walking boot; Complete Time: 21:01 snw Administered Medications: 21:01 Drug: [place] 5 mg-325 mg 1 tabs Route: PO; jb4 21:01 Follow up: Response: Medication administered at discharge. jb4 Disposition: 11/23 00:42 Co-signature as Attending Physician, Nir Martinez MD. rn Disposition: 11/22/18 20:44 Discharged to Home. Impression: Sprain of foot, Fall (on) (from) unspecified stairs and steps - ladder. - Condition is Stable. - Discharge Instructions: Foot Sprain, Sunburn, Adult. - Prescriptions for Diclofenac Sodium 75 mg Oral Tablet Sustained Release - take 1 tablet by ORAL route 2 times per day; 30 tablet. - Work release form, Medication Reconciliation Form, Thank You Letter, Antibiotic Education, Prescription Opioid Use form. - Follow up: Private Physician; When: 2 - 3 days; Reason: Recheck today's complaints, Continuance of care, Re-evaluation by your physician. Follow up: Emergency Department; When: As needed; Reason: Worsening of condition. Signatures: Dispatcher [employer] EDMS Crys Sterling, INTENSIVE CARE MEDICINE SPECIALIST-C INTENSIVE CARE MEDICINE SPECIALIST-Csnw Nir Martinez MD MD rn Pena, Laura, RN RN lp1 Samir Miranda RN RN jb4 Corrections: (The following items were deleted from the chart) 11/22 21:12 20:44 11/22/2018 20:44 Discharged to Home. Impression: Sprain of foot; Fall (on) (from) jb4 unspecified stairs and steps - ladder. Condition is Stable. Forms are Medication Reconciliation Form, Thank You Letter, Antibiotic Education, Prescription Opioid Use. Follow up: Private Physician; When: 2 - 3 days; Reason: Recheck today's complaints, Continuance of care, Re-evaluation by your physician. Follow up: Emergency Department; When: As needed; Reason: Worsening of condition. snw
--- NOTE | 2018-11-22 20:44 | ER ---
Nurse's Notes [facility] Name: Grazyna Barcenas Age: 33 yrs Sex: Female : 1985 Arrival Date: 11/22/2018 Time: 19:36 Bed 19 Private MD: Diagnosis: Sprain of foot;Fall (on) (from) unspecified stairs and steps-ladder Presentation: 11/22 19:38 Presenting complaint: Patient states: "I fell of of a ladder and hurt my left foot"; lp1 Patient states landing on feet when she fell, could bear weight after but now cannot bear weight; Denies hitting head, No LOC; States pain to top of left foot;. Transition of care: patient was not received from another setting of care. Onset of symptoms was November 22, 2018 at 13:00. Risk Assessment: Do you want to hurt yourself or someone else? Patient reports no desire to harm self or others. Initial Sepsis Screen: Does the patient meet any 2 criteria? No. Patient's initial sepsis screen is negative. Does the patient have a suspected source of infection? No. Patient's initial sepsis screen is negative. Care prior to arrival: None. 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 - Social history:: Smoking status: Patient/guardian denies using tobacco. - Ebola Screening: : No symptoms or risks identified at this time. Screenin:40 Abuse screen: Denies threats or abuse. Denies injuries from another. Nutritional lp1 screening: No deficits noted. Tuberculosis screening: No symptoms or risk factors identified. Assessment: 20:45 General: Appears in no apparent distress. uncomfortable, Behavior is calm, cooperative, jb4 appropriate for age. Pain: Complains of pain in anterior aspect of left ankle and dorsum of left foot Pain radiates to left coyle Pain currently is 10 out of 10 on a pain scale. Neuro: Level of Consciousness is awake, alert, obeys commands, Oriented to person, place, time, situation. Cardiovascular: Patient's skin is warm and dry. Respiratory: Airway is patent Respiratory effort is even, unlabored, Respiratory pattern is regular, symmetrical. GI: No signs and/or symptoms were reported involving the gastrointestinal system. : No signs and/or symptoms were reported regarding the genitourinary system. EENT: No signs and/or symptoms were reported regarding the EENT system. Derm: Skin is intact, Skin is pink, warm \\T\\ dry. Musculoskeletal: Circulation, motion, and sensation intact. Range of motion: limited in left ankle. Vital Signs: 19:39 BP 125 / 65; Pulse 101; Resp 18; Temp 99(TE); Pulse Ox 97% on R/A; Weight 90.72 kg; lp1 Height 5 ft. 5 in. (165.10 cm); Pain 10/10; 20:45 BP 134 / 73; Pulse 83; Resp 16; Pulse Ox 100% on R/A; jb4 19:39 Body Mass Index 33.28 (90.72 kg, 165.10 cm) lp1 ED Course: 19:36 Patient arrived in ED. ds1 19:38 [facility] snw 19:38 Nir Martinez MD is Attending Physician. snw 19:39 Triage completed. lp1 19:39 Arm band placed on right wrist. lp1 20:10 Foot Left 3 View XRAY In Process Unspecified. EDMS 20:45 Patient has correct armband on for positive identification. Bed in low position. Call jb4 light in reach. Side rails up X 1. Pulse ox on. NIBP on. 20:48 Samir Miranda, SAIDA is Primary Nurse. jb4 21:05 No provider procedures requiring assistance completed. Patient did not have IV access jb4 during this emergency room visit. Administered Medications: 21:01 Drug: [place] 5 mg-325 mg 1 tabs Route: PO; jb4 21:01 Follow up: Response: Medication administered at discharge. jb4 Outcome: 20:44 Discharge ordered by . snw 21:05 Discharged to home via wheelchair, with family. jb4 21:05 Condition: stable 21:05 Discharge instructions given to patient, family, Instructed on discharge instructions, follow up and referral plans. medication usage, Demonstrated understanding of instructions, follow-up care, medications, Prescriptions given X 1. 21:12 Patient left the ED. jb4 Signatures: Dispatcher [employer] EDMS Crys Sterling, LACE SEWER-C LACE SEWER-Csnw Sarita Richard ds1 Alea Durbin RN RN lp1 Samir Miranda RN RN jb4
[2018-11-22] MEDS ORDERED: HYDROCODONE/APAP 5/325 MG TAB ONE (21:10)
== END 2018-11-22 21:12 | disposition home or self-care (01) ==
LOC: ER 19:31
DX: S93.602A Unspecified sprain of left foot, initial encounter (principal); W11.XXXA Fall on and from ladder, initial encounter; Y93.9 Activity, unspecified; Y92.009 Unspecified place in unspecified non-institutional (private) residence as the place of occurrence of the external cause; Z88.8 Allergy status to other drugs, medicaments and biological substances
CPT/HCPCS: 99284

== ENCOUNTER 2020-02-14 11:20 | Emergency (ER) | payer BC ==
[2020-02-14] MEDS ORDERED: NA CHLORIDE 0.9% 250 ML ONE (11:56)
[2020-02-14] MEDS ORDERED: DIPHENHYDRAMINE 50 MG/ML VIAL ONE (11:56)
[2020-02-14] MEDS ORDERED: METOCLOPRAMIDE 10 MG/2mL INJ ONE (11:56)
[2020-02-14] MEDS ORDERED: KETOROLAC 30 MG/ML INJ ONE (11:56)
--- NOTE | 2020-02-14 12:46 | ER ---
Nurse's Notes [facility] Name: Grazyna Barcenas Age: 34 yrs Sex: Female : 1985 Arrival Date: 02/14/2020 Time: 11:23 Bed 4 Private MD: Diagnosis: Adverse effects of corticosteroid therapy;Migraine Presentation: 02/13 11:35 Chief complaint: Nausea, headache, and upper back pain x 1 hr. Pt stated "I got got hb cortisone shots in my feet yesterday, and this happens ever time when I eat after I get the shots.". Coronavirus screen: At this time, the client does not indicate any symptoms associated with coronavirus-19. Ebola Screen: No symptoms or risks identified at this time. Initial Sepsis Screen: Does the patient meet any 2 criteria? No. Patient's initial sepsis screen is negative. Does the patient have a suspected source of infection? No. Patient's initial sepsis screen is negative. Risk Assessment: Do you want to hurt yourself or someone else? Patient reports no desire to harm self or others. Onset of symptoms was February 14, 2020. 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 - Social history:: Smoking status: Patient denies any tobacco usage or history of. Screenin:00 Abuse screen: Denies threats or abuse. Denies injuries from another. Nutritional jr10 screening: No deficits noted. Tuberculosis screening: No symptoms or risk factors identified. Fall Risk IV access (20 points). Assessment: 12:00 General: Appears in no apparent distress. Behavior is calm, cooperative, appropriate jr10 for age. Pain: Complains of pain in generalized EL. Neuro: Level of Consciousness is awake, alert, obeys commands, Oriented to person, place, time, situation, Appropriate for age Branch Service Associate are equal bilaterally Moves all extremities. Gait is steady, Speech is normal, Facial symmetry appears normal, Pupils are PERRLA, Intact Reports headache. Cardiovascular: Denies chest pain. Respiratory: Airway is patent Respiratory effort is even, unlabored, Respiratory pattern is regular, symmetrical. GI: No deficits noted. No signs and/or symptoms were reported involving the gastrointestinal system. : No deficits noted. No signs and/or symptoms were reported regarding the genitourinary system. EENT: No deficits noted. No signs and/or symptoms were reported regarding the EENT system. Derm: No deficits noted. No signs and/or symptoms reported regarding the dermatologic system. Musculoskeletal: No deficits noted. No signs and/or symptoms reported regarding the musculoskeletal system. Vital Signs: 11:35 BP 148 / 105; Pulse 77; Resp 16; Temp 98.2(TE); Pulse Ox 100% on R/A; Weight 104.33 kg; hb Height 5 ft. 5 in. (165.10 cm); Pain 10/10; 11:35 Body Mass Index 38.27 (104.33 kg, 165.10 cm) hb ED Course: 11:23 Patient arrived in ED. mr 11:37 Triage completed. hb 11:37 Arm band placed on. hb 11:38 Chuyita Lubin, SAIDA is Primary Nurse. jr10 11:40 Ba Haddad PA is PHCP. jr8 11:40 Arley Chang MD is Attending Physician. jr8 11:40 Patient has correct armband on for positive identification. Bed in low position. Call jr10 light in reach. Side rails up X2. Pulse ox on. NIBP on. 12:00 Inserted saline lock: 20 gauge in right hand, using aseptic technique. IV is patent, is jr10 intact, with good blood return, Flushed. 13:16 No provider procedures requiring assistance completed. jr10 13:17 IV discontinued, intact, bleeding controlled, No redness/swelling at site. Pressure jr10 dressing applied. Administered Medications: 12:04 Drug: Benadryl 25 mg Route: IVP; Site: right hand; jr10 13:18 Follow up: Response: No adverse reaction jr10 12:04 Drug: TORadol - Ketorolac 15 mg Route: IVP; Site: right hand; jr10 13:18 Follow up: Response: No adverse reaction jr10 12:05 Drug: Reglan 10 mg Route: IVP; Site: right hand; jr10 13:19 Follow up: Response: No adverse reaction jr10 Outcome: 12:45 Discharge ordered by MD. jr8 13:17 Patient left the ED. ll1 13:19 Discharged to home ambulatory. jr10 13:19 Condition: good 13:19 Discharge instructions given to patient, Instructed on discharge instructions, follow up and referral plans. Demonstrated understanding of instructions, follow-up care. Signatures: Lubin Tori Haddad, Ba, RAMONA GREENE jr8 Bettie Andrew RN RN hb Lewis, Lynsay, RN RN ll1 Chuyita Lubin RN RN jr10 Corrections: (The following items were deleted from the chart) 13:18 11:40 General: Appears in no apparent distress. Behavior is calm, cooperative, jr10 appropriate for age, jr10 :18 11:40 Pain: Complains of pain in generalized EL jr10 jr10 13:18 11:40 Neuro: Level of Consciousness is awake, alert, obeys commands, Oriented to jr10 person, place, time, situation, Appropriate for age Branch Service Associate are equal bilaterally Moves all extremities. Gait is steady, Speech is normal, Facial symmetry appears normal, Pupils are PERRLA, Intact Reports headache jr10 :18 11:40 Cardiovascular: Denies chest pain, jr10 jr10 :18 11:40 Respiratory: Airway is patent Respiratory effort is even, unlabored, Respiratory jr10 pattern is regular, symmetrical, jr10 :18 11:40 GI: No deficits noted. No signs and/or symptoms were reported involving the jr10 gastrointestinal system. jr10 : 11:40 : No deficits noted. No signs and/or symptoms were reported regarding the jr10 genitourinary system. jr10 : 11:40 EENT: No deficits noted. No signs and/or symptoms were reported regarding the jr10 EENT system. jr10 : 11:40 Derm: No deficits noted. No signs and/or symptoms reported regarding the jr10 dermatologic system. jr10 :18 11:40 Musculoskeletal: No deficits noted. No signs and/or symptoms reported regarding jr10 the musculoskeletal system. jr10
--- NOTE | 2020-02-14 12:46 | EDPHYS ---
Physician Documentation [facility] Name: Grazyna Barcenas Age: 34 yrs Sex: Female : 1985 Arrival Date: 02/14/2020 Time: 11:23 Bed 4 Private MD: ED Physician Arley Chang HPI: 02/13 12:41 This 34 yrs old Female presents to ER via Ambulatory with complaints of jr8 Headache, Nausea. 12:41 Onset: The symptoms/episode began/occurred acutely, today. Associated signs and jr8 symptoms: The patient has no apparent associated signs or symptoms. The patient has experienced a previous episode. The patient has been recently seen by a physician:. Patient stated that this is the second time this has happened to her. Stated that she had cortisone shots in her feet. Starts to have vomiting after eating. Happened last time and now with recent shots started again. 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 - Social history:: Smoking status: Patient denies any tobacco usage or history of. ROS: 12:41 Eyes: Negative for injury, pain, redness, and discharge, ENT: Negative for injury, jr8 pain, and discharge, Neck: Negative for injury, pain, and swelling, Cardiovascular: Negative for chest pain, palpitations, and edema, Respiratory: Negative for shortness of breath, cough, wheezing, and pleuritic chest pain, Back: Negative for injury and pain, MS/Extremity: Negative for injury and deformity, Skin: Negative for injury, rash, and discoloration. 12:41 Abdomen/GI: Positive for nausea, Negative for abdominal pain, vomiting, diarrhea, constipation. 12:41 Neuro: Positive for headache. Exam: 12:41 Eyes: Pupils equal round and reactive to light, extra-ocular motions intact. Lids and jr8 lashes normal. Conjunctiva and sclera are non-icteric and not injected. Cornea within normal limits. Periorbital areas with no swelling, redness, or edema. ENT: Nares patent. No nasal discharge, no septal abnormalities noted. Tympanic membranes are normal and external auditory canals are clear. Oropharynx with no redness, swelling, or masses, exudates, or evidence of obstruction, uvula midline. Mucous membranes moist. Neck: Trachea midline, no thyromegaly or masses palpated, and no cervical lymphadenopathy. Supple, full range of motion without nuchal rigidity, or vertebral point tenderness. No Meningismus. Cardiovascular: Regular rate and rhythm with a normal S1 and S2. No gallops, murmurs, or rubs. Normal PMI, no JVD. No pulse deficits. Respiratory: Lungs have equal breath sounds bilaterally, clear to auscultation and percussion. No rales, rhonchi or wheezes noted. No increased work of breathing, no retractions or nasal flaring. Abdomen/GI: Soft, non-tender, with normal bowel sounds. No distension or tympany. No guarding or rebound. No evidence of tenderness throughout. Back: No spinal tenderness. No costovertebral tenderness. Full range of motion. Skin: Warm, dry with normal turgor. Normal color with no rashes, no lesions, and no evidence of cellulitis. MS/ Extremity: Pulses equal, no cyanosis. Neurovascular intact. Full, normal range of motion. Neuro: Awake and alert, GCS 15, oriented to person, place, time, and situation. Cranial nerves II-XII grossly intact. Motor strength 5/5 in all extremities. Sensory grossly intact. Cerebellar exam normal. Normal gait. Vital Signs: 11:35 BP 148 / 105; Pulse 77; Resp 16; Temp 98.2(TE); Pulse Ox 100% on R/A; Weight 104.33 kg; hb Height 5 ft. 5 in. (165.10 cm); Pain 10/10; 11:35 Body Mass Index 38.27 (104.33 kg, 165.10 cm) hb MDM: 11:41 Patient medically screened. [facility] 12:41 Data reviewed: vital signs, nurses notes, lab test result(s), and as a result, I will jr discharge patient. Data interpreted: Pulse oximetry: on room air is 100 %. Interpretation: normal. Counseling: I had a detailed discussion with the patient and/or guardian regarding: the historical points, exam findings, and any diagnostic results supporting the discharge/admit diagnosis, lab results, the need for outpatient follow up, a family practitioner, to return to the emergency department if symptoms worsen or persist or if there are any questions or concerns that arise at home. Response to treatment: the patient's symptoms have markedly improved after treatment. 02/13 12:35 Order name: Glucose, Ancillary Testing; Complete Time: 12:44 EDCA 02/13 11:41 Order name: IV; Complete Time: 12:05 jr8 02/13 11:56 Order name: Glucose Level; Complete Time: 13:01 jr8 Administered Medications: 12:04 Drug: Benadryl 25 mg Route: IVP; Site: right hand; jr10 13:18 Follow up: Response: No adverse reaction jr10 12:04 Drug: TORadol - Ketorolac 15 mg Route: IVP; Site: right hand; jr10 13:18 Follow up: Response: No adverse reaction jr10 12:05 Drug: Reglan 10 mg Route: IVP; Site: right hand; jr10 13:19 Follow up: Response: No adverse reaction jr10 Disposition: 17:06 Co-signature as Attending Physician, Arley Chang MD I agree with the assessment and kdr plan of care. Disposition: 02/14/20 12:45 Discharged to Home. Impression: Adverse effects of corticosteroid therapy, Migraine. - Condition is Stable. - Discharge Instructions: Migraine Headache. - Medication Reconciliation Form, Thank You Letter, Antibiotic Education, Prescription Opioid Use form. - Follow up: Private Physician; When: 2 - 3 days; Reason: Recheck today's complaints, Continuance of care, Re-evaluation by your physician. - Problem is new. - Symptoms have improved. Signatures: Dispatcher [employer] [facility] Arley Chang MD MD kdr Roszak, Josh, PA PA jr8 Bettie Andrew RN RN Juve Redmond RN RN ll1 Chuyita Lubin RN RN jr10 Corrections: (The following items were deleted from the chart) 13:17 12:45 02/14/2020 12:45 Discharged to Home. Impression: Adverse effects of ll1 corticosteroid therapy; Migraine. Condition is Stable. Forms are Medication Reconciliation Form, Thank You Letter, Antibiotic Education, Prescription Opioid Use. Follow up: Private Physician; When: 2 - 3 days; Reason: Recheck today's complaints, Continuance of care, Re-evaluation by your physician. Problem is new. Symptoms have improved. jr8
[2020-02-16 06:30] VITALS: BP 148/105; TEMP 98.2; O2SAT 100
== END 2020-02-14 13:17 | disposition home or self-care (01) ==
LOC: ER 11:20
DX: G43.909 Migraine, unspecified, not intractable, without status migrainosus (principal); T38.0X5A Adverse effect of glucocorticoids and synthetic analogues, initial encounter; Z88.8 Allergy status to other drugs, medicaments and biological substances
CPT/HCPCS: 82947; 96375; 96374; 99283; J2765; J1200; J7050

== ENCOUNTER 2020-08-23 07:54 | Emergency (ER) | payer BC ==
[2020-08-23 09:07] LABS: Urine Blood TRACE (NEG); Urine Glucose NEGATIVE (NEG); Urine Protein NEGATIVE (NEG); Urine pH 6.5 (5.0-7.0)
[2020-08-23] MEDS ORDERED: ONDANSETRON 4 MG (ODT) TAB ONE (09:12)
[2020-08-23] MEDS ORDERED: IBUPROFEN 400 MG TAB ONE (09:12)
--- NOTE | 2020-08-23 09:32 | ER ---
Nurse's Notes [facility] Name: Grazyna Barcenas Age: 35 yrs Sex: Female : 1985 Arrival Date: 08/23/2020 Time: 07:57 Bed 7 Private MD: Diagnosis: Acute upper respiratory infection, unspecified Presentation: 08/23 08:23 Chief complaint: Patient states: Headache, dizziness, N/V/D,chills, fever TMAX 102, ph sore throat, sneezing and nasal congestion, symptoms started 2 days ago. Coronavirus screen: Client denies travel out of the [place] in the last 14 days. chills, congestion, diarrhea, fatigue, fever, headache, nausea, runny nose, sore throat, vomiting. Client presents with at least one sign or symptom that may indicate coronavirus-19. Standard/surgical mask placed on the client. Provider contacted for isolation considerations. Ebola Screen: No symptoms or risks identified at this time. Initial Sepsis Screen: Does the patient meet any 2 criteria? No. Patient's initial sepsis screen is negative. Does the patient have a suspected source of infection? No. Patient's initial sepsis screen is negative. Risk Assessment: Do you want to hurt yourself or someone else? Patient reports no desire to harm self or others. Onset of symptoms was August 21, 2020. 08:23 Method Of Arrival: Ambulatory 08:23 Acuity: LYDIA 4 ph Triage Assessment: 08:28 General: Appears in no apparent distress. comfortable, well groomed, Behavior is calm, ph cooperative, appropriate for age, Reports chills for fever for 2-3 days, feeling ill for 2-3 days. Pain: Complains of pain in head. EENT: Reports nasal congestion nasal discharge pain when swallowing sneezing. Neuro: Level of Consciousness is awake, alert, obeys commands, Oriented to person, place, time, situation. Cardiovascular: Capillary refill < 3 seconds in bilateral fingers Patient's skin is warm and dry. Respiratory: Reports cough that is Airway is patent Respiratory effort is even, unlabored, Respiratory pattern is regular, symmetrical. GI: Reports diarrhea, nausea, vomiting. Derm: Skin is intact, is healthy with good turgor, Skin is pink, warm \\T\\ dry. Musculoskeletal: Circulation, motion, and sensation intact. Range of motion: intact in all extremities. 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 - Social history:: Smoking status: Patient denies any tobacco usage or history of. Screenin: Abuse screen: Denies threats or abuse. Denies injuries from another. Nutritional ph screening: No deficits noted. Tuberculosis screening: No symptoms or risk factors identified. Fall Risk None identified. Assessment: 08:29 General: SEE TRIAGE ASSESSMENT. ph 09:43 Reassessment: Patient appears in no apparent distress at this time. Patient and/or ph family updated on plan of care and expected duration. Pain level reassessed. Patient is alert, oriented x 3, equal unlabored respirations, skin warm/dry/pink. Pt asking if flu test was preformed, informed pt that it had not been ordered d/t the flu cases being very low this season, pt states, " I came here to be tested for the flu because that's what I think that's what I think I have.". 10:21 Reassessment: Patient appears in no apparent distress at this time. Patient and/or ph family updated on plan of care and expected duration. Pain level reassessed. Patient is alert, oriented x 3, equal unlabored respirations, skin warm/dry/pink. Pt d/c home. Vital Signs: 08:23 BP 142 / 77; Pulse 74; Resp 18; Temp 97.8(TE); Pulse Ox 98% on R/A; ph 09:29 BP 123 / 75; Pulse 65; Resp 18; Pulse Ox 99% on R/A; ph 10:22 Temp 97.9(TE); ph ED Course: 07:57 Patient arrived in ED. mr 08:05 Carlos Cuellar MD is Attending Physician. tw4 08:22 Mana Pino, SAIDA is Primary Nurse. ph 08:26 Triage completed. ph 08:26 Patient has correct armband on for positive identification. Bed in low position. Call ph light in reach. Side rails up X 1. Pulse ox on. NIBP on. Door closed. Noise minimized. 08:29 Arm band placed on Patient placed in an exam room, on a stretcher, on pulse oximetry. ph 09:35 CXR XRAY In Process Unspecified. EDMS 10:21 No provider procedures requiring assistance completed. Patient did not have IV access ph during this emergency room visit. Administered Medications: 09:00 Drug: Ondansetron (Zofran) 4 mg Route: PO; ph 10:23 Follow up: Response: No adverse reaction; Nausea is decreased ph 09:00 Drug: Motrin 800 mg Route: PO; ph 10:23 Follow up: Response: No adverse reaction ph Outcome: 09:32 Discharge ordered by tw4 10:21 Discharged to home ambulatory. ph 10:21 Condition: good 10:21 Discharge instructions given to patient, Instructed on discharge instructions, follow up and referral plans. medication usage, Demonstrated understanding of instructions, follow-up care, medications, Prescriptions given X 3. 10:22 Patient left the ED. ph Signatures: Dispatcher [employer] EDNE Tori Lubin Patricia, RN RN ph Carlos Cuellar MD MD tw4
[2020-08-23 10:16] LABS: SARS-COV-2 RT PCR NEGATIVE (NEGATIVE)
--- NOTE | 2020-08-23 10:22 | RAD REPORT ---
EXAM DESCRIPTION: RAD - Chest Single View - 08/23/2020 9:35 am CLINICAL HISTORY: SOB Chest pain. COMPARISON: Chest Pa And Lat (2 Views) dated 12/05/2017; Chest Pa And Lat (2 Views) dated 02/19/2017 FINDINGS: Portable technique limits examination quality. The lungs are grossly clear. The heart is normal in size. No displaced fractures. IMPRESSION: No acute intrathoracic process suspected.
[2020-08-23 10:27] VITALS: BP 123/75; O2SAT 99
[2020-08-23 10:28] VITALS: TEMP 97.9
== END 2020-08-23 10:22 | disposition home or self-care (01) ==
LOC: ER 07:54
DX: J06.9 Acute upper respiratory infection, unspecified (principal); Z20.822 Contact with and (suspected) exposure to COVID-19; Z88.8 Allergy status to other drugs, medicaments and biological substances
CPT/HCPCS: 87070; 81025; 87081; 81003; 0240U; 71045; 99284

== ENCOUNTER 2020-09-10 04:31 | Emergency (ER) | payer BC ==
[2020-09-10] MEDS ORDERED: METHYLPREDNISOLONE 125 MG INJ ONE (05:06)
[2020-09-10] MEDS ORDERED: NA CHLORIDE 0.9% 1,000 ML ONE (05:06)
[2020-09-10] MEDS ORDERED: FAMOTIDINE 20 MG/2 ML VIAL IV ONE (05:06)
[2020-09-10] MEDS ORDERED: DIPHENHYDRAMINE 50 MG/ML VIAL ONE (05:07)
--- NOTE | 2020-09-10 07:08 | ER ---
Nurse's Notes [facility] Name: Grazyna Barcenas Age: 35 yrs Sex: Female : 1985 Arrival Date: 09/10/2020 Time: 04:32 Bed 5 Private MD: Diagnosis: Urticaria, unspecified;Acute allergic reaction Presentation: 09/10 04:42 Chief complaint: Patient states: Reports she broke out with a rash after eating lunch ea yesterday. States the rash is spreading and it is itchy. Coronavirus screen: At this time, the client does not indicate any symptoms associated with coronavirus-19. Ebola Screen: No symptoms or risks identified at this time. Initial Sepsis Screen: Does the patient meet any 2 criteria? No. Patient's initial sepsis screen is negative. Does the patient have a suspected source of infection? No. Patient's initial sepsis screen is negative. Risk Assessment: Do you want to hurt yourself or someone else? Patient reports no desire to harm self or others. Onset of symptoms was September 10, 2020. 04:42 Method Of Arrival: Ambulatory ea 04:42 Acuity: LYDIA 3 ea Historical: - Allergies: 04:45 Levothyroxine Sodium; ea 04:45 Prednisone; ea - PMHx: 04:45 thyroid issues, medication did help; arthritis, tumor in R lower lung that no one will ea do anything about; - PSHx: 04:45 None; ea - Immunization history:: Adult Immunizations up to date. - Social history:: Smoking status: Patient denies any tobacco usage or history of. - Family history:: not pertinent. - Hospitalizations: : No recent hospitalization is reported. Screenin:44 Abuse screen: Denies threats or abuse. Nutritional screening: No deficits noted. ea Tuberculosis screening: No symptoms or risk factors identified. Fall Risk None identified. Assessment: 04:45 General: Appears in no apparent distress. Behavior is calm, cooperative, appropriate ea for age. Pain: Denies pain. Neuro: Level of Consciousness is awake, alert, obeys commands, Oriented to person, place, time, situation. Cardiovascular: Patient's skin is warm and dry. Respiratory: Airway is patent Respiratory effort is even, unlabored, Respiratory pattern is regular, symmetrical. Derm: Rash noted that is urticaria. 06:59 Reassessment: Patient and/or family updated on plan of care and expected duration. Pain ea level reassessed. Patient is alert, oriented x 3, equal unlabored respirations, skin warm/dry/pink. Vital Signs: 04:42 BP 116 / 73; Pulse 98; Resp 18; Temp 98.6; Pulse Ox 98% ; Weight 111.13 kg; Height 5 ea ft. 5 in. (165.10 cm); 06:59 BP 107 / 61; Pulse 73; Resp 18; Pulse Ox 97% on R/A; ea 04:42 Body Mass Index 40.77 (111.13 kg, 165.10 cm) ea ED Course: 04:32 Patient arrived in ED. ag3 04:34 Nir Martinez MD is Attending Physician. rn 04:42 Gina Green RN is Primary Nurse. ea 04:44 Triage completed. ea 04:44 Arm band placed on right wrist. Patient placed in an exam room, on a stretcher, on ea pulse oximetry. 04:44 Patient has correct armband on for positive identification. Bed in low position. Call ea light in reach. Side rails up X2. 05:05 Inserted saline lock: 20 gauge in right hand, using aseptic technique. ea 07:39 No provider procedures requiring assistance completed. IV discontinued, intact, sv bleeding controlled, No redness/swelling at site. Pressure dressing applied. Administered Medications: 05:03 Drug: Benadryl (diphenhydrAMINE) 50 mg Route: IVP; Site: right hand; ea 05:03 Drug: NS 0.9% 1000 ml Route: IV; Rate: 1000 ml; Site: right hand; ea 05:04 Drug: SOLU-Medrol 125 mg Route: IVP; Site: right hand; ea 05:04 Drug: Pepcid (famotidine) 20 mg Route: IVP; Site: right hand; ea Outcome: 07:08 Discharge ordered by . rn 07:39 Patient left the ED. sv 07:39 Discharged to home ambulatory. sv 07:39 Condition: stable 07:39 Discharge instructions given to patient, Instructed on discharge instructions, follow up and referral plans. medication usage, Demonstrated understanding of instructions, follow-up care, medications, Prescriptions given X 3. Signatures: Ivette Cantu RN RN sv Nieto, Roman, MD MD rn Antunez, Elena, RN RN ea Barb Marvin ag3
--- NOTE | 2020-09-10 07:09 | EDPHYS ---
Physician Documentation [facility] Name: Grazyna Barcenas Age: 35 yrs Sex: Female : 1985 Arrival Date: 09/10/2020 Time: 04:32 Bed 5 Private MD: ED Physician Nir Martinez HPI: 09/10 05:01 This 35 yrs old Female presents to ER via Ambulatory with complaints of Rash. rn 07:04 The patient's rash thought to be caused by an unknown cause. The rash is located on the rn body diffusely. The rash can be described as urticarial. Onset: The symptoms/episode began/occurred yesterday. Associated signs and symptoms: Pertinent positives: itching, Pertinent negatives: fever. Severity of symptoms: At their worst the symptoms were moderate in the emergency department the symptoms are unchanged. The patient has not experienced similar symptoms in the past. The patient has not recently seen a physician. Reports rash to body, began yesterday, no fever, has had allergic reaction before to unknown substance. Tried new shampoo recently. NO sob or swelling. . Historical: - Allergies: 04:45 Levothyroxine Sodium; ea 04:45 Prednisone; ea - PMHx: 04:45 thyroid issues, medication did help; arthritis, tumor in R lower lung that no one will ea do anything about; - PSHx: 04:45 None; ea - Immunization history:: Adult Immunizations up to date. - Social history:: Smoking status: Patient denies any tobacco usage or history of. - Family history:: not pertinent. - Hospitalizations: : No recent hospitalization is reported. ROS: 07:04 Constitutional: Negative for fever, chills, and weight loss, Eyes: Negative for injury, rn pain, redness, and discharge, Neck: Negative for injury, pain, and swelling, Cardiovascular: Negative for chest pain, palpitations, and edema, Respiratory: Negative for shortness of breath, cough, wheezing, and pleuritic chest pain, Abdomen/GI: Negative for abdominal pain, nausea, vomiting, diarrhea, and constipation, Back: Negative for injury and pain, MS/Extremity: Negative for injury and deformity, Skin: + rash Neuro: Negative for headache, weakness, numbness, tingling, and seizure. Exam: 07:04 Constitutional: This is a well developed, well nourished patient who is awake, alert, rn and in no acute distress. Head/Face: Normocephalic, atraumatic. ENT: No intraoral lesions or swelling Cardiovascular: Regular rate and rhythm with a normal S1 and S2. No gallops, murmurs, or rubs. Normal PMI, no JVD. No pulse deficits. Respiratory: Lungs have equal breath sounds bilaterally, clear to auscultation and percussion. No rales, rhonchi or wheezes noted. No increased work of breathing, no retractions or nasal flaring. Abdomen/GI: Soft, non-tender, with normal bowel sounds. No distension or tympany. No guarding or rebound. No evidence of tenderness throughout. Skin: + diffuse urticaria, worse on torso MS/ Extremity: Pulses equal, no cyanosis. Neurovascular intact. Full, normal range of motion. Equal circumference. Neuro: Awake and alert, GCS 15, oriented to person, place, time, and situation. Cranial nerves II-XII grossly intact. Motor strength 5/5 in all extremities. Sensory grossly intact. Cerebellar exam normal. Normal gait. Vital Signs: 04:42 BP 116 / 73; Pulse 98; Resp 18; Temp 98.6; Pulse Ox 98% ; Weight 111.13 kg; Height 5 ea ft. 5 in. (165.10 cm); 06:59 BP 107 / 61; Pulse 73; Resp 18; Pulse Ox 97% on R/A; ea 04:42 Body Mass Index 40.77 (111.13 kg, 165.10 cm) ea MDM: 04:34 Patient medically screened. rn 07:04 Differential diagnosis: allergic reaction. Data reviewed: vital signs, nurses notes, rn and as a result, I will discharge patient. Counseling: I had a detailed discussion with the patient and/or guardian regarding: the historical points, exam findings, and any diagnostic results supporting the discharge/admit diagnosis, the need for outpatient follow up, to return to the emergency department if symptoms worsen or persist or if there are any questions or concerns that arise at home. Response to treatment: the patient's symptoms have markedly improved after treatment, and as a result, I will discharge patient. Special discussion: I discussed with the patient/guardian in detail that at this point there is no indication for admission to the hospital. It is understood, however, that if the symptoms persist or worsen the patient needs to return immediately for re-evaluation. 09/10 04:45 Order name: IV Start; Complete Time: 05:04 rn Administered Medications: 05:03 Drug: Benadryl (diphenhydrAMINE) 50 mg Route: IVP; Site: right hand; ea 05:03 Drug: NS 0.9% 1000 ml Route: IV; Rate: 1000 ml; Site: right hand; ea 05:04 Drug: SOLU-Medrol 125 mg Route: IVP; Site: right hand; ea 05:04 Drug: Pepcid (famotidine) 20 mg Route: IVP; Site: right hand; ea Disposition: 09/10/20 07:08 Discharged to Home. Impression: Urticaria, unspecified, Acute allergic reaction. - Condition is Stable. - Discharge Instructions: Hives. - Prescriptions for Hydroxyzine HCl 50 mg Oral Tablet - take 1 tablet by ORAL route every 8 hours As needed; 20 tablet. Medrol (Toni) 4 mg Oral Tablets, Dose Pack - take 1 tablet by ORAL route as directed - follow package instructions; 1 packet. EpiPen 0.3 mg Injection auto- injector - inject 1 pen by INTRAMUSCULAR route one time As needed Inject into the outer portion of the thigh, through clothing if necessary. Indicated in the emergency treatment of allergic reactions; 1 packet. - Work release form, Medication Reconciliation Form, Thank You Letter, Antibiotic Education, Prescription Opioid Use form. - Follow up: Private Physician; When: As needed; Reason: Recheck today's complaints, Re-evaluation by your physician. - Problem is new. - Symptoms have improved. Signatures: Ivette Cantu RN RN sv Nieto, Roman, MD MD rn Antunez, Elena, RN RN ea Corrections: (The following items were deleted from the chart) 07:39 07:08 09/10/2020 07:08 Discharged to Home. Impression: Urticaria, unspecified; Acute sv allergic reaction. Condition is Stable. Forms are Medication Reconciliation Form, Thank You Letter, Antibiotic Education, Prescription Opioid Use. Follow up: Private Physician; When: As needed; Reason: Recheck today's complaints, Re-evaluation by your physician. Problem is new. Symptoms have improved. rn
[2020-09-10 08:17] VITALS: TEMP 98.6
[2020-09-10 08:21] VITALS: BP 107/61; O2SAT 97
== END 2020-09-10 07:39 | disposition home or self-care (01) ==
LOC: ER 04:31
DX: L50.9 Urticaria, unspecified (principal); E07.9 Disorder of thyroid, unspecified; Z88.8 Allergy status to other drugs, medicaments and biological substances
CPT/HCPCS: J1200; J7030; J2930; 96374; 96375; 99284

== ENCOUNTER 2021-03-06 08:53 | Emergency (ER) | payer BC ==
[2021-03-06] MEDS ORDERED: LIDOCAINE 1% MPF 5 ML VIAL ONE (09:38)
[2021-03-06] MEDS ORDERED: BUPIVACAINE 0.5% PF 10 ML VIAL ONE (09:38)
--- NOTE | 2021-03-06 09:38 | ER ---
Nurse's Notes [facility] Name: Grazyna Barcenas Age: 35 yrs Sex: Female : 1985 Arrival Date: 03/06/2021 Time: 08:55 Bed 14 Private MD: Curtis Hernandez E Diagnosis: Cutaneous abscess of left hand-paronychia, left thumb Presentation: 03/06 09:02 Chief complaint: Patient states: left thumb pain. Initial Sepsis Screen: Does the oh patient meet any 2 criteria? No. Patient's initial sepsis screen is negative. Does the patient have a suspected source of infection? Yes: Other: ingrown nail. 09:02 Method Of Arrival: Ambulatory oh 09:05 Ebola Screen: No symptoms or risks identified at this time. Risk Assessment: Do you oh want to hurt yourself or someone else? Patient reports no desire to harm self or others. Onset of symptoms is unknown. 09:05 Acuity: LYDIA 4 oh 09:10 Coronavirus screen: Vaccine status: Patient reports being unvaccinated. oh Triage Assessment: 09:07 General: Appears comfortable, Behavior is calm, cooperative. Pain: Complains of pain in oh left thumb. Derm: Abscess located on left thumb. 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 - Social history:: Patient/guardian denies using Smoking status: Patient denies any tobacco usage or history of. Screenin:10 Abuse screen: Denies threats or abuse. Nutritional screening: No deficits noted. oh Tuberculosis screening: No symptoms or risk factors identified. Fall Risk None identified. Assessment: 09:09 Derm: Abscess located on left thumb. oh Vital Signs: 09:02 BP 174 / 93; Pulse 80; Resp 17; Temp 97.3; Pulse Ox 98% on R/A; oh 09:09 BP 147 / 93; Pulse 80; Resp 17; Temp 97.3; Pulse Ox 98% ; oh 09:44 BP 118 / 64; Pulse 80; Resp 17; Pulse Ox 100% on R/A; oh ED Course: 08:55 Patient arrived in ED. ds1 08:56 Curtis Hernandez MD is Private Physician. ds1 09:01 Ivan Zavala, RN is Primary Nurse. oh 09:02 [facility] Steele [facility]C [facility] kb 09:02 Arley Chang MD is Attending Physician. kb 09:05 Triage completed. oh 09:10 Patient has correct armband on for positive identification. Bed in low position. Call oh light in reach. 09:11 Arm band placed on right wrist. oh 09:44 No provider procedures requiring assistance completed. oh 09:44 Patient did not have IV access during this emergency room visit. oh Administered Medications: 09:19 Drug: Marcaine (bupivacaine) (0.5 %) 1 vials {Note: administered by BOND ANALYST Cedric.} oh Volume: 10 ml; Route: Infiltration; 09:20 Drug: Lidocaine (1 %) 1 vials {Note: administered by BOND ANALYST Cedric.} Volume: 5 ml; Route: oh Infiltration; Outcome: 09:38 Discharge ordered by . kb 09:44 Discharged to home oh 09:44 Condition: good 09:44 Discharge instructions given to patient. 09:45 Patient left the ED. oh Signatures: Shahnaz Steele FNP-C FNP-Sarita Miranda ds1 Ivan Zavala, RN RN oh
--- NOTE | 2021-03-06 09:38 | EDPHYS ---
Physician Documentation [facility] Name: Grazyna Barcenas Age: 35 yrs Sex: Female : 1985 Arrival Date: 03/06/2021 Time: 08:55 Bed 14 Private MD: Curtis Hernandez E ED Physician Arley Chang HPI: 03/06 09:09 This 35 yrs old Female presents to ER via Ambulatory with complaints of Thumb kb Pain. 09:12 The patient presents with an abscess of the left thumbnail. Description: erythematous, kb swollen, warm. The patient has not experienced similar symptoms in the past. The patient has not recently seen a physician. 09:13 Onset: The symptoms/episode began/occurred 4 day(s) ago. Possible cause(s): unknown. kb Associated signs and symptoms: Pertinent positives: erythema, swelling, Pertinent negatives: discharge, drainage, foreign body sensation, fever, headache, nausea, shortness of breath, vomiting. Modifying factors: the symptoms are alleviated by nothing, the symptoms are aggravated by nothing. Severity of symptoms: At their worst the symptoms were mild, moderate, in the emergency department the symptoms are unchanged. Pt states she has redness, swelling and pain to lateral nailbed on left thumb. States her PCP put her on antibiotics 3 days ago, but it hasn't gone away. Talked to her PCP today and was told she had to come to the ER for us to cut it open. 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 - Social history:: Patient/guardian denies using Smoking status: Patient denies any tobacco usage or history of. ROS: 09:09 Constitutional: Negative for fever, chills, and weight loss. kb 09:09 Skin: Positive for abscess, of the left thumbnail. 09:09 All other systems are negative. Exam: 09:09 Constitutional: This is a well developed, well nourished patient who is awake, alert, kb and in no acute distress. Head/Face: Normocephalic, atraumatic. ENT: Moist Mucous membranes Respiratory: Respirations even and unlabored. No increased work of breathing, no retractions or nasal flaring. MS/ Extremity: Pulses equal, no cyanosis. Neurovascular intact. Full, normal range of motion. Neuro: Awake and alert, GCS 15, oriented to person, place, time, and situation. Moves all extremities. Normal gait. Psych: Awake, alert, with orientation to person, place and time. Behavior, mood, and affect are within normal limits. 09:09 Skin: abscess, that is small, of the left thumbnail, with fluctuance. Vital Signs: 09:02 BP 174 / 93; Pulse 80; Resp 17; Temp 97.3; Pulse Ox 98% on R/A; oh 09:09 BP 147 / 93; Pulse 80; Resp 17; Temp 97.3; Pulse Ox 98% ; oh 09:44 BP 118 / 64; Pulse 80; Resp 17; Pulse Ox 100% on R/A; oh Procedures: 09:20 Nerve block: (digital) of dorsal aspect of proximal phalanx of left thumb Medication: kb Lidocaine 1% without epinephrine Marcaine 0.5%, Amount: 3 mls were injected, Effect: the patient has resolution of the pain, Set up for procedure. Performed by Shahnaz LOPEZ Patient tolerated well. 09:37 I \T\ D: Incision and drainage was performed for an abscess of the left left thumbnail kb Prepped with Betadine, Incised with 18G. Drained moderate amount purulent fluid. the patient tolerated the procedure well. MDM: 09:02 Patient medically screened. kb 09:08 Data reviewed: vital signs, nurses notes. Data interpreted: Pulse oximetry: on room air kb is 98 %. Interpretation: normal. 09:37 Counseling: I had a detailed discussion with the patient and/or guardian regarding: the kb historical points, exam findings, and any diagnostic results supporting the discharge/admit diagnosis, the need for outpatient follow up, a family practitioner, to return to the emergency department if symptoms worsen or persist or if there are any questions or concerns that arise at home. Administered Medications: 09:19 Drug: Marcaine (bupivacaine) (0.5 %) 1 vials {Note: administered by IMMANUEL Steele.} oh Volume: 10 ml; Route: Infiltration; 09:20 Drug: Lidocaine (1 %) 1 vials {Note: administered by IMMANUEL Steele.} Volume: 5 ml; Route: oh Infiltration; Disposition Summary: 03/06/21 09:38 Discharge Ordered Location: Home kb Condition: Stable kb Diagnosis - Cutaneous abscess of left hand - paronychia, left thumb kb Followup: kb - With: Emergency Department - When: As needed - Reason: Worsening of condition Followup: kb - With: Private Physician - When: 2 - 3 days - Reason: Recheck today's complaints, Continuance of care, Re-evaluation by your physician Discharge Instructions: - Discharge Summary Sheet kb - Paronychia, [id number] kb Forms: - Medication Reconciliation Form kb - Thank You Letter kb - Antibiotic Education kb - Work release form kb - Prescription Opioid Use kb Addendum: 03/07/2021 16:57 Co-signature as Attending Physician, Arley Chang MD I agree with the assessment and k dr plan of care. Signatures: Shahnaz Steele, DIRECTOR TELECOMMUNICATIONS-C DIRECTOR TELECOMMUNICATIONS-Ckb Arley Chang MD MD [facility] Ivan Zavala, RN RN oh
[2021-03-06 10:06] VITALS: TEMP 97.3
[2021-03-06 10:08] VITALS: BP 118/64; O2SAT 100
== END 2021-03-06 09:45 | disposition home or self-care (01) ==
LOC: ER 08:53
PROC: 0J9K0ZZ Drainage of Left Hand Subcutaneous Tissue and Fascia, Open Approach (ICD-10-PCS; principal; 2021-03-06)
DX: L03.012 Cellulitis of left finger (principal); Z88.0 Allergy status to penicillin; Z88.8 Allergy status to other drugs, medicaments and biological substances
CPT/HCPCS: 64450; 99283

== ENCOUNTER 2021-05-27 18:45 | Emergency (ER) | payer BC ==
--- OUTSIDE RECORDS SUMMARY | 2021-05-27 18:47 | XMS REPORT | Continuity of Care Document ---
:1985 Author Organization [facility] t Address [address] [place] [address] [place] [id number] Care Team Providers Name Role Phone Rita_C Attending Clinician Unavailable Maluf_C Admitting Clinician Unavailable Payers Payer Name Policy Type Policy Number Effective Date Expiration Date S ource [employer] (PPO) [id number] Problems This patient has no known problems. Allergies, Adverse Reactions, Alerts This patient has no known allergies or adverse reactions. Medications This patient has no known medications. Procedures This patient has no known procedures. Encounters Start End Encounter Admission Attending Care Care Encounter Source Date/Time Date/Time Type Type Clinicians Facility Department ID 2020-04-30 2020-04-30 Outpatient Rita_C [facility] [id number] [place] 02:42:00 02:42:00 [id number] Results This patient has no known results.
--- NOTE | 2021-05-27 22:06 | ER ---
Nurse's Notes [facility] Name: Grazyna Barcenas Age: 36 yrs Sex: Female : 1985 Arrival Date: 05/27/2021 Time: 18:48 Bed Waiting Private MD: Diagnosis: SARS-associated coronavirus as the cause of diseases classified elsewhere Presentation: 05/27 19:04 Chief complaint: Patient states: Sore throat, nasal drainage, cough, body aches, back ll1 pain for 1 week. is covid positive, came to get checked. Coronavirus screen: Vaccine status: Patient reports being unvaccinated. Client denies travel out of the [place] in the last 14 days. At this time, the client does not indicate any symptoms associated with coronavirus-19. Ebola Screen: Patient denies travel to an Ebola-affected area in the 21 days before illness onset. Initial Sepsis Screen: Does the patient meet any 2 criteria? No. Patient's initial sepsis screen is negative. Does the patient have a suspected source of infection? Yes: Productive cough/pneumonia. Risk Assessment: Do you want to hurt yourself or someone else? Patient reports no desire to harm self or others. Onset of symptoms was May 19, 2021. 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 Flu vaccine is not up to date. - Social history:: Smoking status: Patient denies any tobacco usage or history of. Vital Signs: 19:04 BP 133 / 100; Pulse 82; Resp 17; Temp 98.6; Pulse Ox 96% on R/A; Weight 113.4 kg; ll1 Height 5 ft. 5 in. (165.10 cm); Pain 7/10; 19:04 Body Mass Index 41.60 (113.40 kg, 165.10 cm) ll1 ED Course: 18:48 Patient arrived in ED. as 19:06 Triage completed. ll1 19:07 Arm band placed on. ll1 22:01 Ba Haddad PA is PHCP. jr8 22:01 Deven Doss MD is Attending Physician. jr8 Administered Medications: No medications were administered Outcome: 22:05 Discharge ordered by . jr8 22:18 Patient left the ED. jh5 Signatures: Greta Irene as Ba Haddad PA PA jr8 Juve Redmond RN RN 1 Chuyita Owusu RN RN 5 Corrections: (The following items were deleted from the chart) 19:08 19:04 Acuity: LYDIA 3 ll1 ll1
--- NOTE | 2021-05-27 22:06 | EDPHYS ---
Physician Documentation [facility] Name: Grazyna Barcenas Age: 36 yrs Sex: Female : 1985 Arrival Date: 05/27/2021 Time: 18:48 Bed Waiting Private MD: ED Physician Deven Doss HPI: 05/27 22:03 This 36 yrs old Female presents to ER via Ambulatory with complaints of r/o covid. jr8 22:03 Onset: The symptoms/episode began/occurred gradually, 1 week(s) ago. Associated signs jr8 and symptoms: Pertinent positives: congestion, cough, sore throat. The patient has not experienced similar symptoms in the past. The patient has not recently seen a physician. of patient recently tested positive for COVID. Has been having similar symptoms for one week. Came to get tested today after he tested positive . 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 Flu vaccine is not up to date. - Social history:: Smoking status: Patient denies any tobacco usage or history of. ROS: 22:03 Eyes: Negative for injury, pain, redness, and discharge, Neck: Negative for injury, jr8 pain, and swelling, Cardiovascular: Negative for chest pain, palpitations, and edema, Abdomen/GI: Negative for abdominal pain, nausea, vomiting, diarrhea, and constipation, Back: Negative for injury and pain, MS/Extremity: Negative for injury and deformity, Skin: Negative for injury, rash, and discoloration, Neuro: Negative for headache, weakness, numbness, tingling, and seizure. 22:03 ENT: Positive for rhinorrhea, sinus congestion, sore throat. 22:03 Respiratory: Positive for cough. Exam: 22:03 Eyes: Pupils equal round and reactive to light, extra-ocular motions intact. Lids and jr8 lashes normal. Conjunctiva and sclera are non-icteric and not injected. Cornea within normal limits. Periorbital areas with no swelling, redness, or edema. ENT: Nares patent. No nasal discharge, no septal abnormalities noted. Tympanic membranes are normal and external auditory canals are clear. Oropharynx with no redness, swelling, or masses, exudates, or evidence of obstruction, uvula midline. Mucous membranes moist. Neck: Trachea midline, no thyromegaly or masses palpated, and no cervical lymphadenopathy. Supple, full range of motion without nuchal rigidity, or vertebral point tenderness. No Meningismus. Cardiovascular: Regular rate and rhythm with a normal S1 and S2. No gallops, murmurs, or rubs. Normal PMI, no JVD. No pulse deficits. Respiratory: Lungs have equal breath sounds bilaterally, clear to auscultation and percussion. No rales, rhonchi or wheezes noted. No increased work of breathing, no retractions or nasal flaring. Abdomen/GI: Soft, non-tender, with normal bowel sounds. No distension or tympany. No guarding or rebound. No evidence of tenderness throughout. Back: No spinal tenderness. No costovertebral tenderness. Full range of motion. Skin: Warm, dry with normal turgor. Normal color with no rashes, no lesions, and no evidence of cellulitis. MS/ Extremity: Pulses equal, no cyanosis. Neurovascular intact. Full, normal range of motion. Neuro: Awake and alert, GCS 15, oriented to person, place, time, and situation. Cranial nerves II-XII grossly intact. Motor strength 5/5 in all extremities. Sensory grossly intact. Cerebellar exam normal. Normal gait. Vital Signs: 19:04 BP 133 / 100; Pulse 82; Resp 17; Temp 98.6; Pulse Ox 96% on R/A; Weight 113.4 kg; ll1 Height 5 ft. 5 in. (165.10 cm); Pain 7/10; 19:04 Body Mass Index 41.60 (113.40 kg, 165.10 cm) ll1 MDM: 22:03 Data reviewed: vital signs, nurses notes, lab test result(s), and as a result, I will jr8 discharge patient. Data interpreted: Pulse oximetry: on room air is 96 %. Interpretation: normal. Counseling: I had a detailed discussion with the patient and/or guardian regarding: the historical points, exam findings, and any diagnostic results supporting the discharge/admit diagnosis, lab results, the need for outpatient follow up, a family practitioner, to return to the emergency department if symptoms worsen or persist or if there are any questions or concerns that arise at home. 22:05 Patient medically screened. jr8 05/27 21:12 Order name: SARS-COV-2 RT PCR; Complete Time: 22:06 EDMS Administered Medications: No medications were administered Disposition: 05/28 19:43 Co-signature as Attending Physician, Deven Doss MD I agree with the assessment and sp3 plan of care. Disposition Summary: 05/27/21 22:05 Discharge Ordered Location: Home jr8 Problem: new jr8 Symptoms: have improved jr8 Condition: Stable jr8 Diagnosis - SARS-associated coronavirus as the cause of diseases classified elsewhere jr8 Followup: jr8 - With: Private Physician - When: 10 - 14 days - Reason: Recheck today's complaints, Continuance of care, Re-evaluation by your physician Discharge Instructions: - Discharge Summary Sheet jr8 - COVID-19 jr8 Forms: - Medication Reconciliation Form jr8 - Work release form jr8 - Thank You Letter jr8 - Antibiotic Education jr8 - Prescription Opioid Use jr8 Prescriptions: - promethazine-DM 6.25-15 mg/5 mL Oral syrup - take 5 milliliter by ORAL route every 4-6 hours As needed as needed, not to jr8 exceed 30 mL in 24 hours; 110 milliliter; Refills: 0, Product Selection Permitted - Tessalon Perles 100 mg Oral Capsule - take 1 capsule by ORAL route every 8 hours As needed; 15 capsule; Refills: 0, jr8 Product Selection Permitted Signatures: Dispatcher [employer] EDMS Ba Haddad PA PA jr8 Juve Redmond RN RN ll1 Deven Doss MD MD sp3 Corrections: (The following items were deleted from the chart) 05/27 21:12 19:14 CORONAVIRUS+BRZ ordered. EDOR EDMS
[2021-05-27 22:37] VITALS: BP 133/100; TEMP 98.6; O2SAT 96
== END 2021-05-27 22:18 | disposition home or self-care (01) ==
LOC: ER 18:45
DX: U07.1 COVID-19 (principal)
CPT/HCPCS: 99281; U0003

== ENCOUNTER 2023-04-16 11:01 | Emergency (ER) | payer BC ==
--- OUTSIDE RECORDS SUMMARY | 2023-04-16 11:03 | XMS REPORT | Continuity of Care Document ---
:1985 Author Organization [facility] Address [address] [place] [address] [place] [address] Care Team Providers Name Role Phone [email or web address] Attending Clinician Unavailable ENMANUEL Attending Clinician Unavailable Rita_Nu Attending Clinician Unavailable [email or web address]_S Admitting Clinician Unavailable ENMANUEL Admitting Clinician Unavailable Rita_Nu Admitting Clinician Unavailable Payers Payer Name Policy Type Policy Number Effective Date Expiration Date S sadaf [employer] (PPO) [id number] Problems This patient has no known problems. Allergies, Adverse Reactions, Alerts This patient has no known allergies or adverse reactions. Medications This patient has no known medications. Procedures This patient has no known procedures. Encounters Start End Encounter Admission Attending Care Care Encounter Source Date/Time Date/Time Type Type Clinicians Facility Department ID 2023-04-11 2023-04-11 Outpatient GC_GCBZW_Ka [facility] [id number] [facility] 00:00:00 00:00:00 diyala_S [id number] Medic al 2023-04-10 2023-04-10 Outpatient GC_GCBZW_Ka [facility] [id number] [facility] 00:00:00 00:00:00 diyala_S [id number] Medic al 2021-12-22 2021-12-22 Outpatient CHENG LOREDO [facility] [id number] [place] 04:01:00 04:01:00 [facility]EL [facility] 2020-04-30 2020-04-30 Outpatient Maluf_C [facility] [id number] [place] 02:42:00 02:42:00 [facility] Results This patient has no known results.
[2023-04-16 12:00] LABS: SARS-CoV-2 Antigen Rapid Res Negative (Negative)
--- NOTE | 2023-04-16 12:45 | ER ---
Nurse's Notes [facility] Name: Grazyna Barcenas Age: 37 yrs Sex: Female : 1985 Arrival Date: 04/16/2023 Time: 11:01 Bed IW4 Private MD: Diagnosis: Fever, unspecified;Acute upper respiratory infection, unspecified Presentation: 04/16 11:24 Chief complaint: Patient states: sore throat, fever, cough, body aches, chills, X 2 iw days , diarrhea , vomiting. Coronavirus screen: Client presents with at least one sign or symptom that may indicate coronavirus-19. Ebola Screen: Patient negative for fever greater than or equal to 101.5 degrees Fahrenheit, and additional compatible Ebola Virus Disease symptoms Patient denies exposure to infectious person. Patient denies travel to an Ebola-affected area in the 21 days before illness onset. No symptoms or risks identified at this time. Initial Sepsis Screen: Does the patient meet any 2 criteria? No. Patient's initial sepsis screen is negative. Does the patient have a suspected source of infection? No. Patient's initial sepsis screen is negative. Risk Assessment: Do you want to hurt yourself or someone else? Patient reports no desire to harm self or others. Onset of symptoms was April 14, 2023. 11:24 Method Of Arrival: Ambulatory iw 11:24 Acuity: LYDIA 4 iw Triage Assessment: 13:30 General: Appears in no apparent distress. Behavior is calm, cooperative. GI: Reports. iw Historical: - Allergies: 11:26 Cortisone; iw 11:26 Levothyroxine Sodium; iw 11:26 PENICILLINS; iw 11:26 Prednisone; iw - PMHx: 11:26 Arthritis; thyroid issues; iw - Immunization history:: Adult Immunizations unknown. - Family history:: not pertinent. - Social history:: Smoking status: unknown. - Hospitalizations: : No recent hospitalization is reported. Screenin:30 [facility] ED Fall Risk Assessment (Adult) Score/Fall Risk Level 0 - 2 = Low Risk. Abuse iw screen: Denies threats or abuse. Denies injuries from another. Nutritional screening: No deficits noted. Tuberculosis screening: No symptoms or risk factors identified. Assessment: 11:30 General: Appears in no apparent distress. Behavior is calm, cooperative. Pain: iw Complains of pain in head and back of head. Neuro: Level of Consciousness is awake, alert, obeys commands, Oriented to person, place, time, situation, Moves all extremities. Full function. GI: Abdomen is non-distended. Vital Signs: 11:24 BP 139 / 62; Pulse 84; Resp 18; Temp 99.4; Pulse Ox 98% on R/A; Weight 113.4 kg; Height iw 5 ft. 4 in. ; 11:24 Body Mass Index 42.91 (113.40 kg, 162.56 cm) iw ED Course: 11:03 Patient arrived in ED. ts1 11:15 Nir Martinez MD is Attending Physician. rn 11:25 Triage completed. iw 11:26 Arm band placed on. iw 11:30 Patient has correct armband on for positive identification. Provided Education on: . iw 11:34 Strep Sent. iw 11:34 Flu Sent. iw 11:34 SARS RAPID Sent. iw 12:17 Yesenia Tuttle RN is Primary Nurse. iw 13:30 No provider procedures requiring assistance completed. Patient did not have IV access iw during this emergency room visit. Administered Medications: No medications were administered Medication: 13:30 VIS not applicable for this client. iw Outcome: 12:44 Discharge ordered by . rn 13:30 Discharged to home ambulatory, iw 13:30 Condition: good 13:30 Discharge instructions given to patient, Instructed on discharge instructions, follow up and referral plans. Demonstrated understanding of instructions, follow-up care, medications, Prescriptions given X 2, 13:31 Patient left the ED. iw Signatures: Yesenia Tuttle RN RN Nir Martinez MD MD rn Simpson, Tanya, PAS PAS ts1 Corrections: (The following items were deleted from the chart) : 11:24 Pulse 84bpm; Resp 18bpm; Pulse Ox 98% RA; Temp 99.4F; iw iw 11: PMHx: Arthritis; iw iw 11: PMHx: Arthritis; iw iw 11: PMHx: Arthritis; iw iw
--- NOTE | 2023-04-16 12:45 | EDPHYS ---
Physician Documentation [facility] Name: Grazyna Barcenas Age: 37 yrs Sex: Female : 1985 Arrival Date: 04/16/2023 Time: 11:01 Bed IW4 Private MD: ED Physician Nir Martinez HPI: 04/16 12:41 This 37 yrs old Female presents to ER via Ambulatory with complaints of Chest rn Congestion, Cough, Nausea/Vomiting/Diarrhea, Body aches. 12:41 The patient or guardian reports cough, flu symptoms, low-grade fever, myalgias. Onset: rn The symptoms/episode began/occurred 2 day(s) ago. Severity of symptoms: At their worst the symptoms were mild, in the emergency department the symptoms are unchanged. Modifying factors: The symptoms are alleviated by nothing, the symptoms are aggravated by nothing. The patient has not experienced similar symptoms in the past. Patient reports flulike symptoms that began 2 days ago, headache/runny nose/sore throat/cough/vomiting/diarrhea. Reports sick contacts with COVID/flu/strep. Historical: - Allergies: 11:26 Cortisone; iw 11:26 Levothyroxine Sodium; iw 11:26 PENICILLINS; iw 11:26 Prednisone; iw - PMHx: 11:26 Arthritis; thyroid issues; iw - Immunization history:: Adult Immunizations unknown. - Family history:: not pertinent. - Social history:: Smoking status: unknown. - Hospitalizations: : No recent hospitalization is reported. ROS: 12:41 Constitutional: Positive for fever and chills Cardiovascular: Negative for chest pain, rn palpitations, and edema, Respiratory: Positive for cough negative for shortness of breath Abdomen/GI: Positive for nausea/vomiting/diarrhea Back: Negative for injury and pain, MS/Extremity: Negative for injury and deformity, Skin: Negative for injury, rash, and discoloration, Neuro: Positive for headache Exam: 12:41 Constitutional: This is a well developed, well nourished patient who is awake, alert, rn and in no acute distress. Head/Face: Normocephalic, atraumatic. ENT: Mild pharyngeal erythema, no stridor Cardiovascular: Regular rate and rhythm. No pulse deficits. Respiratory: No increased work of breathing, no retractions or nasal flaring. Abdomen/GI: Soft, non-tender, with normal bowel sounds. No distension or tympany. No guarding or rebound. No evidence of tenderness throughout. Neuro: Awake and alert, GCS 15 Vital Signs: 11:24 BP 139 / 62; Pulse 84; Resp 18; Temp 99.4; Pulse Ox 98% on R/A; Weight 113.4 kg; Height iw 5 ft. 4 in. ; 11:24 Body Mass Index 42.91 (113.40 kg, 162.56 cm) iw MDM: 11:15 Patient medically screened. rn 12:41 Differential Diagnosis: Bronchitis Influenza Upper Respiratory Infection Sinusitis rn Viral Syndrome Pneumonia. Data reviewed: vital signs, nurses notes, lab test result(s), and as a result, I will discharge patient. Counseling: I had a detailed discussion with the patient and/or guardian regarding the historical points, exam findings, and any diagnostic results supporting the discharge/admit diagnosis, lab results, the need for outpatient follow up, to return to the emergency department if symptoms worsen or persist or if there are any questions or concerns that arise at home. Special discussion: I discussed with the patient/guardian in detail that at this point there is no indication for admission to the hospital. It is understood, however, that if the symptoms persist or worsen the patient needs to return immediately for re-evaluation. 12:41 ED course: I have personally reviewed all of the results, including but not limited to rn blood tests deemed necessary to safely discharge this patient at this time. All results given to and printed out for patient. I personally went over all the results with the patient and answered all questions. Patient will follow-up with PCP and or specialist as discussed. Return precautions given and understood.. 04/16 11:16 Order name: SARS RAPID; Complete Time: 12:39 rn 04/16 11:16 Order name: Flu; Complete Time: 12:39 rn 04/16 11:16 Order name: Strep; Complete Time: 12:39 rn 04/16 11:54 Order name: Throat Culture EDMS Administered Medications: No medications were administered Disposition Summary: 04/16/23 12:44 Discharge Ordered Notes: Location: Home rn Problem: new rn Symptoms: have improved rn Condition: Stable rn Diagnosis - Fever, unspecified rn - Acute upper respiratory infection, unspecified rn Followup: rn - With: Private Physician - When: As needed - Reason: Recheck today's complaints, Re-evaluation by your physician Discharge Instructions: - Discharge Summary Sheet rn - Fever, Adult rn - Upper Respiratory Infection, Adult rn Forms: - Work release form iw - Medication Reconciliation Form rn - Thank You Letter rn - Antibiotic enamel burner - Prescription Opioid Use rn - Patient Portal Instructions rn - Leadership Thank You Letter rn Prescriptions: - ondansetron 4 mg Oral Tablet,disintegrating - take 1 tablet ORAL route every 8 hours As needed; 10 tablet; Refills: 0, rn Product Selection Permitted - Zithromax Z-Toni 250 mg Oral Tablet - take 1 tablet ORAL route as directed for 5 days Day 1 - take two (2) tablets rn one time. Day 2, 3, 4 , 5 take one (1) tablet once daily.; 6 tablet; Refills: 0, Product Selection Permitted Signatures: Dispatcher [employer] Yesenia Fernández RN RN iw Nir Martinez MD MD internal corrosion specialist: (The following items were deleted from the chart) 11: 11:26 PMHx: Arthritis; [facility] 11: 11:26 PMHx: Arthritis; [facility] 11: 11:26 PMHx: Arthritis; iw iw
[2023-04-16 13:57] VITALS: BP 139/62; TEMP 99.4; O2SAT 98
== END 2023-04-16 13:31 | disposition home or self-care (01) ==
LOC: ER 11:01
DX: J06.9 Acute upper respiratory infection, unspecified (principal); Z11.52 Encounter for screening for COVID-19; Z88.0 Allergy status to penicillin; Z88.8 Allergy status to other drugs, medicaments and biological substances
CPT/HCPCS: 36415; 87070; 87081; 87804; 87811; 99283

== ENCOUNTER 2023-05-08 07:25 | Emergency (ER) | payer BC ==
--- OUTSIDE RECORDS SUMMARY | 2023-05-08 07:27 | XMS REPORT | Continuity of Care Document ---
:[address] [facility] Address [address] [place] [address] [place] [id number] Care Team Providers Name Role Phone [email or web address] Attending Clinician Unavailable ENMANUEL Attending Clinician Unavailable Rita_Nu Attending Clinician Unavailable [email or web address] Admitting Clinician Unavailable ENMANUEL Admitting Clinician Unavailable Rita_Nu Admitting Clinician Unavailable Payers Payer Name Policy Type Policy Number Effective Date Expiration Date Kimberly RODRIGUEZ (PPO) [id number] Problems This patient has no known problems. Allergies, Adverse Reactions, Alerts This patient has no known allergies or adverse reactions. Medications This patient has no known medications. Procedures This patient has no known procedures. Encounters Start End Encounter Admission Attending Care Care Encounter Source Date/Time Date/Time Type Type Clinicians Facility Department ID 2023-04-11 2023-04-11 Outpatient [email or web address] PRIV PRIV [id number] [facility] 00:00:00 00:00:00 diyala_S [id number] Medic al 2023-04-10 2023-04-10 Outpatient GC_[email or web address] PRIV PRIV [id number] [facility] 00:00:00 00:00:00 diyala_S [id number] Medic al 2021-12-22 2021-12-22 Outpatient SIM_ FACUNDO [facility] [address] [place] 04:01:00 04:01:00 [facility]EL [facility] 2020-04-30 2020-04-30 Outpatient Maluf_C [facility] [id number] [place] 02:42:00 02:42:00 [id number] Results This patient has no known results.
[2023-05-08 07:55] LABS: Absolute Lymphocytes (CBC) 2.2 K/uL (0.7-4.9); Hematocrit 39.2 % (36.0-45.0); Lymphocytes % 38.9 % (15.3-44.8); MCV 82.5 fL (80-100); MPV 7.9 fL (7.6-11.3); Platelets 271 thou/uL (152-406); RBC Red Blood Cell Count 4.76 M/uL (3.86-4.86)
[2023-05-08] MEDS ORDERED: CIPROFLOXACIN 400mg IV 400 MG/200 ML BAG IV ONE (08:04)
[2023-05-08] MEDS ORDERED: MORPHINE 2 MG/ML SYR ONE (08:04)
[2023-05-08] MEDS ORDERED: METRONIDAZOLE 500mg IVPB 500 MG/100 ML BAG IV ONE (08:04)
[2023-05-08] MEDS ORDERED: ONDANSETRON 4 MG/2 ML VIAL ONE (08:04)
[2023-05-08] MEDS ORDERED: NA CHLORIDE 0.9% 1,000 ML ONE (08:04)
[2023-05-08 08:27] LABS: Albumin 3.9 g/dL (3.4-5.0); Bilirubin Total 0.2 mg/dL (0.2-1.0); Potassium 4.1 mEq/L (3.5-5.1); Protein, Total 8.3 g/dL (6.4-8.2)
[2023-05-08 09:01] LABS: Specific Gravity 1.004 (1.005-1.030); Urine Bacteria None Seen /HPF (<20); Urine RBC <5 /HPF (None Seen)
[2023-05-08 09:11] LABS: Urine Clarity Clear (Clear); Urine Color Colorless (Yellow)
[2023-05-08 09:12] LABS: Specific Gravity 1.004 (1.005-1.030); Urine Ascorbic Acid Negative (Negative); Urine Bilirubin NEGATIVE (Negative); Urine Blood Negative (Negative); Urine Glucose Negative (Negative); Urine Protein Negative (Negative); Urine Urobilinogen Normal (Normal); Urine pH 6.5 (5.0-7.0)
--- NOTE | 2023-05-08 10:34 | RAD REPORT ---
EXAM DESCRIPTION: CT - Abdomen Pelvis W Contrast - 05/08/2023 9:24 am CLINICAL HISTORY: ABD PAIN COMPARISON: No comparisons TECHNIQUE: Thin cut axial CT imaging of the abdomen and pelvis was performed following intravenous a dministration of 100 mL Isovue 300. Multiplanar reformats were generated and reviewed. All CT scans are performed using dose optimization technique as appropriate and may include automated exposure control or mA/KV adjustment according to patient size. FINDINGS: No suspicious findings in the lung bases. The liver, spleen, adrenal glands, and pancreas show no suspicious findings. Gallbladder and biliary tree are also without suspicious finding. Symmetric renal function is seen with no hydronephrosis or suspicious renal mass. No dilated bowel loops or bowel wall thickening. No free air, free fluid or inflammatory stranding. N o hernia, mass or bulky lymphadenopathy. The urinary bladder is without significant finding. No suspicious bony findings. IMPRESSION: No acute intra-abdominal process.
--- NOTE | 2023-05-08 10:37 | ER ---
Nurse's Notes [facility] Name: Grazyna Barcenas Age: 37 yrs Sex: Female : 1985 Arrival Date: 05/08/2023 Time: 07:25 Bed 7 Private MD: Curtis Hernandez E Diagnosis: GI Bleed/ Gastrointestinal hemorrhage, unspecified-lower ;Left sided colitis with rectal bleeding Presentation: 05/08 07:31 Chief complaint: Patient states: Rectal bleeding and pain. Coronavirus screen: Vaccine ll1 status: Patient reports being unvaccinated. Client denies travel out of the [place] in the last 14 days. At this time, the client does not indicate any symptoms associated with coronavirus-19. Ebola Screen: Patient denies travel to an Ebola-affected area in the 21 days before illness onset. Initial Sepsis Screen: Does the patient meet any 2 criteria? No. Patient's initial sepsis screen is negative. Does the patient have a suspected source of infection? No. Patient's initial sepsis screen is negative. Risk Assessment: Do you want to hurt yourself or someone else? Patient reports no desire to harm self or others. 07:31 Method Of Arrival: Ambulatory ll1 07:31 Acuity: LYDIA 3 ll1 Triage Assessment: 07:32 General: Appears uncomfortable, Behavior is calm, cooperative, appropriate for age. ll1 Pain: Complains of pain in rectal Pain currently is 10 out of 10 on a pain scale. Quality of pain is described as burning, aching. Neuro: No deficits noted. Cardiovascular: No deficits noted. GI: Reports cramping, rectal bleeding. Historical: - Allergies: 07:28 Cortisone; ll1 07:28 Levothyroxine Sodium; ll1 07:28 PENICILLINS; ll1 07:28 Prednisone; ll1 - PMHx: 07:28 Arthritis; thyroid issues; ll1 - Immunization history:: Adult Immunizations up to date. - Social history:: Smoking status: Patient denies any tobacco usage or history of. - Family history:: not pertinent. Screenin:40 [facility] ED Fall Risk Assessment (Adult) History of falling in the last 3 months, db including since admission No falls in past 3 months (0 pts) Confusion or Disorientation No (0 pts) Intoxicated or Sedated No (0 pts) Impaired Gait No (0 pts) Mobility Assist Device Used No (0 pt) Altered Elimination No (0 pt) Score/Fall Risk Level 0 - 2 = Low Risk Oriented to surroundings, Maintained a safe environment. Abuse screen: Denies threats or abuse. Denies injuries from another. Nutritional screening: No deficits noted. Tuberculosis screening: No symptoms or risk factors identified. Assessment: 07:38 Reassessment: Patient appears in no apparent distress at this time. Patient and/or db family updated on plan of care and expected duration. Pain level reassessed. Patient is alert, oriented x 3, equal unlabored respirations, skin warm/dry/pink. rectal bleeding and rectal pain. General: Appears in no apparent distress. Neuro: Level of Consciousness is awake, alert, obeys commands, Oriented to person, place, time, situation, Speech is normal. Respiratory: Airway is patent Respiratory effort is even, unlabored, Respiratory pattern is regular, symmetrical. 08:40 Reassessment: Patient appears in no apparent distress at this time. Patient and/or db family updated on plan of care and expected duration. Pain level reassessed. Patient is alert, oriented x 3, equal unlabored respirations, skin warm/dry/pink. PATIENT AMBULATORY TO URINE. Vital Signs: 07:31 Pain 10/10; ll1 07:39 BP 155 / 92; Pulse 72; Resp 18; Temp 98(O); Pulse Ox 100% ; Weight 113.4 kg; Height 5 db ft. 4 in. ; Pain 10/10; 11:34 BP 132 / 78; Pulse 71; Resp 18; Temp 98; Pulse Ox 99% on R/A; ph 07:39 Body Mass Index 42.91 (113.40 kg, 162.56 cm) db 07:31 Pain Scale: Adult ll1 07:39 Pain Scale: Adult db ED Course: 07:27 Patient arrived in ED. as 07:27 Tonny Segura MD is Attending Physician. derek 07:27 Curtis Hernandez MD is Private Physician. as 07:28 Arm band placed on Patient placed in an exam room, on a stretcher. ll1 07:32 Triage completed. ll1 07:39 Beena Fitch, SAIDA is Primary Nurse. db 07:40 Patient has correct armband on for positive identification. Bed in low position. Call db light in reach. Side rails up X 1. Pulse ox on. NIBP on. Warm blanket given. 08:01 Inserted saline lock: 20 gauge in right Blood collected. ls5 09:26 CT Abd/Pelvis - IV Contrast Only In Process Unspecified. EDMS 10:37 Curtis Hernandez MD is Referral Physician. [facility] 10:37 Jonas Bishop MD is Referral Physician. derek Administered Medications: 07:52 Drug: NS 0.9% IV 1000 ml IV at 1 bolus Per protocol; 1000 mL bolus Route: IV; Rate: 1 db bolus; Site: right hand; 07:53 Drug: Ondansetron IVP 4 mg IVP once; over 2 minutes Route: IVP; Site: left hand; db 07:53 Drug: morphine IVP or IV 2 mg IVP once over 4 mins Route: IVP; Infused Over: 4 mins; db Site: right wrist; 11:34 Follow up: Response: No adverse reaction ph 07:57 Drug: metroNIDAZOLE IVPB 500 mg 100 ml IVPB at 200 ml/hr once over 30 mins Volume: 100 db ml; Route: IVPB; Rate: 200 ml/hr; Infused Over: 30 mins; Site: right wrist; 09:00 Follow up: Response: No adverse reaction; IV Status: Completed infusion db 07:58 Drug: morphine IVP or IV 2 mg IVP once over 4 mins Route: IVP; Infused Over: 4 mins; db Site: right wrist; 11:34 Follow up: Response: No adverse reaction ph 09:00 Drug: Ciprofloxacin IVPB 400 mg 200 ml IVPB once over 60 mins Volume: 200 ml; Route: db IVPB; Infused Over: 60 mins; Site: right wrist; Medication: 07:38 VIS not applicable for this client. db Outcome: 10:37 Discharge ordered by . [facility] 11:35 Patient left the ED. ph Signatures: Dispatcher [employer] EDMS Tonny Segura MD MD cha Martinez, Amelia as Hall, Patricia, RN RN ph Juve Redmond RN RN ll1 Beena Fitch RN RN db Jasbir Christianson ls5 Corrections: (The following items were deleted from the chart) 07:28 07:28 PMHx: Arthritis; ll1 ll1 07:28 07:28 PMHx: Arthritis; ll1 ll1 07:28 07:28 PMHx: Arthritis; ll1 ll1
--- NOTE | 2023-05-08 10:37 | EDPHYS ---
Physician Documentation [facility] Name: Grazyna Barcenas Age: 37 yrs Sex: Female : 1985 Arrival Date: 05/08/2023 Time: 07:25 Bed 7 Private MD: Curtis Hernandez E ED Physician Tonny Segura HPI: 05/08 07:49 This 37 yrs old Female presents to ER via Ambulatory with complaints of derek Rectal Pain, Rectal Bleeding. 07:49 The patient presents to the emergency department with bleeding from the rectum/anus, derek that is mild. Onset: The symptoms/episode began/occurred 2 day(s) ago. Context: the patient has no known special context relating to the rectal area complaint(s). Modifying factors: The symptoms are alleviated by remaining still, sitz baths, The symptoms are aggravated by bowel movement, sitting position. Associate signs and symptoms: Pertinent positives: constipation, lower GI bleeding. The patient has experienced similar episodes in the past, multiple times. Historical: - Allergies: 07:28 Cortisone; ll1 07:28 Levothyroxine Sodium; ll1 07:28 PENICILLINS; ll1 07:28 Prednisone; ll1 - PMHx: 07:28 Arthritis; thyroid issues; ll1 - Immunization history:: Adult Immunizations up to date. - Social history:: Smoking status: Patient denies any tobacco usage or history of. - Family history:: not pertinent. ROS: 07:49 Constitutional: Negative for fever, chills, and weight loss, Eyes: Negative for injury, derek pain, redness, and discharge, ENT: Negative for injury, pain, and discharge, Neck: Negative for injury, pain, and swelling, Cardiovascular: Negative for chest pain, palpitations, and edema, Respiratory: Negative for shortness of breath, cough, wheezing, and pleuritic chest pain, Back: Negative for injury and pain, : Negative for injury, bleeding, discharge, and swelling, MS/Extremity: Negative for injury and deformity, Skin: Negative for injury, rash, and discoloration, Neuro: Negative for headache, weakness, numbness, tingling, and seizure, Psych: Negative for depression, anxiety, suicide ideation, homicidal ideation, and hallucinations, Allergy/Immunology: Negative for hives, rash, and allergies, Endocrine: Negative for neck swelling, polydipsia, polyuria, polyphagia, and marked weight changes, Hematologic/Lymphatic: Negative for swollen nodes, abnormal bleeding, and unusual bruising, 07:49 Abdomen/GI: Positive for abdominal pain, abdominal cramps, rectal pain, rectal bleeding, of the left lower quadrant, Exam: 07:49 Constitutional: This is a well developed, well nourished patient who is awake, alert, derek and in no acute distress. Head/Face: Normocephalic, atraumatic. Eyes: Pupils equal round and reactive to light, extra-ocular motions intact. Lids and lashes normal. Conjunctiva and sclera are non-icteric and not injected. Cornea within normal limits. Periorbital areas with no swelling, redness, or edema. ENT: Nares patent. No nasal discharge, no septal abnormalities noted. Tympanic membranes are normal and external auditory canals are clear. Oropharynx with no redness, swelling, or masses, exudates, or evidence of obstruction, uvula midline. Mucous membranes moist. Neck: Trachea midline, no thyromegaly or masses palpated, and no cervical lymphadenopathy. Supple, full range of motion without nuchal rigidity, or vertebral point tenderness. No Meningismus. Chest/axilla: Normal chest wall appearance and motion. Nontender with no deformity. No lesions are appreciated. Cardiovascular: Regular rate and rhythm with a normal S1 and S2. No gallops, murmurs, or rubs. Normal PMI, no JVD. No pulse deficits. Respiratory: Lungs have equal breath sounds bilaterally, clear to auscultation and percussion. No rales, rhonchi or wheezes noted. No increased work of breathing, no retractions or nasal flaring. Back: No spinal tenderness. No costovertebral tenderness. Full range of motion. Pelvic Exam: Normal external genitalia. Speculum exam with closed cervical os, no discharge or bleeding noted. Bimanual exam with normal adnexa, no adnexal or cervical motion tenderness. Normal uterus. Female : Normal external genitalia. Skin: Warm, dry with normal turgor. Normal color with no rashes, no lesions, and no evidence of cellulitis. MS/ Extremity: Pulses equal, no cyanosis. Neurovascular intact. Full, normal range of motion. Neuro: Awake and alert, GCS 15, oriented to person, place, time, and situation. Cranial nerves II-XII grossly intact. Motor strength 5/5 in all extremities. Sensory grossly intact. Cerebellar exam normal. Normal gait. Psych: Awake, alert, with orientation to person, place and time. Behavior, mood, and affect are within normal limits. 07:49 Abdomen/GI: Inspection: abdomen appears normal, Bowel sounds: normal, Palpation: mild abdominal tenderness, in the left lower quadrant, Rectal exam: rectal tone normal, hemorrhoid(s), internal, mass, is not appreciated, swelling, is not appreciated, Liver: no appreciated palpable abnormalities, Hernia: not appreciated, Vital Signs: 07:31 Pain 10/10; ll1 07:39 BP 155 / 92; Pulse 72; Resp 18; Temp 98(O); Pulse Ox 100% ; Weight 113.4 kg; Height 5 db ft. 4 in. ; Pain 10/10; 11:34 BP 132 / 78; Pulse 71; Resp 18; Temp 98; Pulse Ox 99% on R/A; ph 07:39 Body Mass Index 42.91 (113.40 kg, 162.56 cm) db 07:31 Pain Scale: Adult ll1 07:39 Pain Scale: Adult db MDM: 07:27 Patient medically screened. [facility] 07:55 Differential diagnosis: hemorrhoids, fissure, abscess. Data reviewed: vital signs, [facility] nurses notes, lab test result(s), radiologic studies, CT scan. Consideration of Admission/Observation Escalation of care including admission/observation considered. I considered the following discharge prescriptions or medication management in the emergency department Medications were administered in the Emergency Department. See MAR. Independent interpretation of the following test(s) in the Emergency Department CT Scan: My interpretation is ct report. Test considered but Not performed: Ultrasound no abd usg. Historians other than the Patient: Family Member: . Care significantly affected by the following chronic conditions: oa, thyroid. Counseling: I had a detailed discussion with the patient and/or guardian regarding the historical points, exam findings, and any diagnostic results supporting the discharge/admit diagnosis, lab results, radiology results, the need for outpatient follow up, for definitive care, a family practitioner, a senior quality control inspector. 05/08 07:41 Order name: CBC with Diff; Complete Time: 08:58 [facility] 05/08 07:41 Order name: CMP; Complete Time: 08:58 [facility] 05/08 07:41 Order name: Lipase; Complete Time: 08:58 [facility] 05/08 07:41 Order name: Test, Urine; Complete Time: 09:39 [facility] 05/08 07:41 Order name: Urinalysis w/ reflexes; Complete Time: 09:39 [facility] 05/08 07:41 Order name: CT Abd/Pelvis - IV Contrast Only [facility] 05/08 07:41 Order name: IV Saline Lock; Complete Time: 08:02 [facility] 05/08 07:41 Order name: Labs collected and sent; Complete Time: 08:02 [facility] Administered Medications: 07:52 Drug: NS 0.9% IV 1000 ml IV at 1 bolus Per protocol; 1000 mL bolus Route: IV; Rate: 1 db bolus; Site: right hand; 07:53 Drug: Ondansetron IVP 4 mg IVP once; over 2 minutes Route: IVP; Site: left hand; db 07:53 Drug: morphine IVP or IV 2 mg IVP once over 4 mins Route: IVP; Infused Over: 4 mins; db Site: right wrist; 11:34 Follow up: Response: No adverse reaction ph 07:57 Drug: metroNIDAZOLE IVPB 500 mg 100 ml IVPB at 200 ml/hr once over 30 mins Volume: 100 db ml; Route: IVPB; Rate: 200 ml/hr; Infused Over: 30 mins; Site: right wrist; 09:00 Follow up: Response: No adverse reaction; IV Status: Completed infusion db 07:58 Drug: morphine IVP or IV 2 mg IVP once over 4 mins Route: IVP; Infused Over: 4 mins; db Site: right wrist; 11:34 Follow up: Response: No adverse reaction ph 09:00 Drug: Ciprofloxacin IVPB 400 mg 200 ml IVPB once over 60 mins Volume: 200 ml; Route: db IVPB; Infused Over: 60 mins; Site: right wrist; Disposition Summary: 05/08/23 10:37 Discharge Ordered Notes: Location: Home derek Problem: new derek Symptoms: have improved derek Condition: Stable derek Diagnosis - GI Bleed/ Gastrointestinal hemorrhage, unspecified - lower derek - Left sided colitis with rectal bleeding derek Followup: derek - With: Curtis Hernandez MD - When: 2 - 3 days - Reason: Recheck today's complaints, Continuance of care, Re-evaluation by your physician Followup: derek - With: Jonas Bishop MD - When: 2 - 3 days - Reason: Recheck today's complaints, Continuance of care, Re-evaluation by your physician Discharge Instructions: - Discharge Summary Sheet derek - Gastrointestinal Bleeding derek - Rectal Bleeding derek - How to Take a Sitz Bath derek Forms: - Medication Reconciliation Form derek - Thank You Letter derek - Antibiotic Education derek - Prescription Opioid Use derek - Patient Portal Instructions derek - Leadership Thank You Letter derek - Work release form ph Prescriptions: - ondansetron 4 mg Oral Tablet,disintegrating - take 1 tablet ORAL route every 6 to 8 hours for 5 days; 20 tablet; Refills: 0, derek Product Selection Permitted - Flagyl 500 mg Oral Tablet - take 1 tablet ORAL route every 8 hours for 10 days; 30 tablet; Refills: 0, derek Product Selection Permitted - Cipro 500 mg Oral Tablet - take 1 tablet ORAL route every 12 hours for 7 days; 14 tablet; Refills: 0, derek Product Selection Permitted Signatures: Dispatcher [employer] Tonny Huitron MD MD cha Lewis, Lynsay RN RN ll1 Beena Fitch RN RN Mana Pino RN ph Corrections: (The following items were deleted from the chart) 07:28 07:28 PMHx: Arthritis; ll1 ll1 07:28 07:28 PMHx: Arthritis; ll1 ll1 07:28 07:28 PMHx: Arthritis; ll1 ll1
[2023-05-08 11:51] VITALS: TEMP 98
[2023-05-08 12:17] VITALS: BP 132/78; O2SAT 99
== END 2023-05-08 11:35 | disposition home or self-care (01) ==
LOC: ER 07:25
DX: K51.511 Left sided colitis with rectal bleeding (principal); Z88.0 Allergy status to penicillin; Z88.8 Allergy status to other drugs, medicaments and biological substances
CPT/HCPCS: 85025; 81001; 36415; 81025; 83690; 80053; 74177; 99284; Q9967; J2270; J2405; J0744; J7030

== ENCOUNTER 2023-05-12 13:06 | Emergency (ER) | payer BC ==
--- OUTSIDE RECORDS SUMMARY | 2023-05-12 13:09 | XMS REPORT | Continuity of Care Document ---
:1985 Author Organization [facility] Address [address] [place] [address] [place] [id number] Care Team Providers Name Role Phone [email or web address]_S Attending Clinician Unavailable ENMANUEL Attending Clinician Unavailable Rita_Nu Attending Clinician Unavailable [email or web address]_S Admitting Clinician Unavailable ENMANUEL Admitting Clinician Unavailable Rita_Nu Admitting Clinician Unavailable Payers Payer Name Policy Type Policy Number Effective Date Expiration Date Kimberly RODRIGUEZ (PPO) [id number] Problems This patient has no known problems. Allergies, Adverse Reactions, Alerts This patient has no known allergies or adverse reactions. Medications This patient has no known medications. Procedures This patient has no known procedures. Encounters Start End Encounter Admission Attending Care Care Encounter Source Date/Time Date/Time Type Type Clinicians Facility Department ID 2023-04-11 2023-04-11 Outpatient GC_GCBZW_Ka PRIV PRIV [id number] [facility] 00:00:00 00:00:00 diyala_S [id number] Medic al 2023-04-10 2023-04-10 Outpatient GC_GCBZW_Ka PRIV PRIV [id number] [facility] 00:00:00 00:00:00 diyala_S [id number] Medic al 2021-12-22 2021-12-22 Outpatient SIM_ [facility] [id number] [place] 04:01:00 04:01:00 [facility]EL [facility] 2020-04-30 2020-04-30 Outpatient Maluf_C MMG [facility] [id number] [place] 02:42:00 02:42:00 [id number] Results This patient has no known results.
[2023-05-12 15:12] LABS: Absolute Lymphocytes (CBC) 2.7 K/uL (0.7-4.9); Hematocrit 40.5 % (36.0-45.0); Lymphocytes % 32.2 % (15.3-44.8); MCV 83.7 fL (80-100); Platelets 279 thou/uL (152-406); RBC Red Blood Cell Count 4.84 M/uL (3.86-4.86)
[2023-05-12] MEDS ORDERED: ONDANSETRON 4 MG/2 ML VIAL ONE (15:17)
[2023-05-12] MEDS ORDERED: MORPHINE 4 MG/ML SYR ONE (15:17)
[2023-05-12] MEDS ORDERED: NA CHLORIDE 0.9% 1,000 ML ONE (15:17)
[2023-05-12 15:32] LABS: Potassium 4.2 mEq/L (3.5-5.1)
[2023-05-12] MEDS ORDERED: LIDOCAINE HCL JELLY 2% 6 ML SYRINGE TOP ONE (16:07)
--- NOTE | 2023-05-12 16:30 | EDPHYS ---
Physician Documentation [facility] Name: Grazyna Barcenas Age: 37 yrs Sex: Female : 1985 Arrival Date: 05/12/2023 Time: 13:06 Bed 10 Private MD: ED Physician Tonny Segura HPI: 05/12 14:31 This 37 yrs old Female presents to ER via Ambulatory with complaints of Rectal sb4 pain/bleeding. 14:31 The patient presents to the emergency department with bleeding from the rectum/anus, sb4 pain in the rectal area. Onset: The symptoms/episode began/occurred 4 day(s) ago. The patient has been recently seen at the [facility] Emergency Department, this week, for similar complaints labs were performed, CT scan was performed, was given a prescription for antibiotics, was given a prescription for an antiemetic. 14:52 Patient was seen here 4 days and diagnosed with hemorrhoids. She had a full work-up sb4 with labs and CT. She was diagnosed with oral antibiotics and Zofran. She has a follow-up appointment with GI on Tuesday. However, the antibiotics have given her a lot of diarrhea and now she is having more pain and bleeding in her rectum. She states that she feels very weak. 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 - Social history:: Smoking status: Patient denies any tobacco usage or history of. ROS: 14:52 Constitutional: Negative for fever, chills, and weight loss, sb4 14:52 Abdomen/GI: Positive for rectal pain, rectal bleeding, sb4 14:52 Neuro: Positive for weakness, 14:52 All other systems are negative, Exam: 14:52 Constitutional: This is a well developed, well nourished patient who is awake, alert, sb4 and in no acute distress. Head/Face: Normocephalic, atraumatic. Eyes: Extra-ocular motions intact. Periorbital areas with no swelling, redness, or edema. ENT: Mucous membranes moist. Cardiovascular: Regular rate and rhythm with a normal S1 and S2. Respiratory: Lungs have equal breath sounds bilaterally, clear to auscultation and percussion. No rales, rhonchi or wheezes noted. No increased work of breathing, no retractions or nasal flaring. Abdomen/GI: Soft, non-tender, no distension. Skin: Warm, dry with normal turgor. Normal color with no rashes, no lesions, and no evidence of cellulitis. MS/ Extremity: Pulses equal, no cyanosis. Neurovascular intact. Full, normal range of motion. Neuro: Awake and alert, GCS 15, oriented to person, place, time, and situation. Motor strength 5/5 in all extremities. Sensory grossly intact. 17:04 : Rectal exam: Rectal tone: normal, Perineal sensation Normal hemorrhoid(s), sb4 external, inflammed, are present, Vital Signs: 13:53 BP 132 / 78; Pulse 73; Resp 18; Temp 98.1; Pulse Ox 99% ; ko1 16:44 BP 127 / 74; Pulse 75; Resp 16; Pulse Ox 100% ; cp4 MDM: 13:39 Patient medically screened. sb4 14:52 Differential diagnosis: hemorrhoids. sb4 17:05 Data reviewed: vital signs, nurses notes, lab test result(s), and as a result, I will sb4 discharge patient. 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 05/12 14:20 Order name: CBC with Diff; Complete Time: 15:26 sb4 05/12 14:20 Order name: BMP; Complete Time: 15:33 sb4 05/12 14:20 Order name: IV Saline Lock; Complete Time: 15:01 sb4 Administered Medications: 15:15 Drug: NS 0.9% IV 1000 ml IV at 1 bolus Per protocol; 1000 mL bolus Route: IV; Rate: 1 cp4 bolus; Site: right antecubital; 15:16 Drug: morphine IVP or IV 4 mg IVP once over 4 mins Route: IVP; Infused Over: 4 mins; cp4 Site: right antecubital; 15:16 Drug: Ondansetron IVP 4 mg IVP once; over 2 minutes Route: IVP; Site: right antecubital;cp4 16:10 Drug: Lidocaine Mucous Membrane Gel 2 % 1 application Mucous Membrane once; per rectum cp4 Route: Mucous Membrane; Disposition Summary: 05/12/23 16:29 Discharge Ordered Notes: Location: Home sb4 Problem: an ongoing problem sb4 Symptoms: are unchanged sb4 Condition: Stable sb4 Diagnosis - rectal pain/bleeding secondary to hemorrhoids sb4 Followup: sb4 - With: Emergency Department - When: As needed - Reason: Trouble breathing, Worsening of condition Discharge Instructions: - Discharge Summary Sheet sb4 - Hemorrhoids, [id number]-Ggft sb4 - Rectal Bleeding, Qcei-[id number]-Hdsh sb4 Forms: - Work release form sb4 - Medication Reconciliation Form sb4 - Thank You Letter sb4 - Antibiotic Education sb4 - Prescription Opioid Use sb4 - Patient Portal Instructions sb4 - Leadership Thank You Letter sb4 Prescriptions: - dibucaine 1 % Rectal ointment - apply 1 application RECTAL route 3 times per day as needed for hemorrhoids; 1 sb4 Applicator; Refills: 0, Product Selection Permitted Signatures: Dispatcher [employer] EDMS Ines Au RN RN ko1 Cee Bojorquez PA-C PA-C sb4 Davina Espinosa cp4 Corrections: (The following items were deleted from the chart) 13:55 13:55 PMHx: arthritis, 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 She had a full sb4 work-up with labs and CT. She was diagnosed with oral antibiotics and Zofran. She has a follow-up appointment with GI on Tuesday. However, the antibiotics have given her a lot of diarrhea and now she is having more pain and bleeding in her rectum. sb4
--- NOTE | 2023-05-12 16:30 | ER ---
Nurse's Notes [facility] Name: Grazyna Barcenas Age: 37 yrs Sex: Female : 1985 Arrival Date: 05/12/2023 Time: 13:06 Bed 10 Private MD: Diagnosis: rectal pain/bleeding secondary to hemorrhoids Presentation: 05/12 13:53 Chief complaint: Patient states: she was seen here and diagnosed with hemorrhoids, she ko1 is raw from the diarrhea that the antibiotics caused. She needs to see GI dr but needs a work note to stay off work. Coronavirus screen: At this time, the client does not indicate any symptoms associated with coronavirus-19. Ebola Screen: No symptoms or risks identified at this time. Initial Sepsis Screen: Does the patient meet any 2 criteria? No. Patient's initial sepsis screen is negative. Does the patient have a suspected source of infection? No. Patient's initial sepsis screen is negative. Risk Assessment: Do you want to hurt yourself or someone else? Patient reports no desire to harm self or others. Onset of symptoms is unknown. 13:53 Method Of Arrival: Ambulatory ko1 13:53 Acuity: LYDIA 4 ko1 Triage Assessment: 13:55 General: Appears uncomfortable, Behavior is cooperative, appropriate for age. Pain: ko1 Complains of pain in gluteal cleft. 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 - Social history:: Smoking status: Patient denies any tobacco usage or history of. Screenin:01 [facility] ED Fall Risk Assessment (Adult) History of falling in the last 3 months, cp4 including since admission No falls in past 3 months (0 pts) Confusion or Disorientation No (0 pts) Intoxicated or Sedated No (0 pts) Impaired Gait No (0 pts) Mobility Assist Device Used No (0 pt) Altered Elimination No (0 pt) Score/Fall Risk Level 0 - 2 = Low Risk Oriented to surroundings, Maintained a safe environment, Educated pt \T\ family on fall prevention, incl call for assistance when getting out of bed, Hourly rounding (assess needs \T\ fall precautionary measures) done. Abuse screen: Denies threats or abuse. Nutritional screening: No deficits noted. Tuberculosis screening: No symptoms or risk factors identified. Assessment: 14:01 General: Appears in no apparent distress. Behavior is calm, cooperative, appropriate cp4 for age. Vital Signs: 13:53 BP 132 / 78; Pulse 73; Resp 18; Temp 98.1; Pulse Ox 99% ; ko1 16:44 BP 127 / 74; Pulse 75; Resp 16; Pulse Ox 100% ; cp4 ED Course: 13:10 Patient arrived in ED. im 13:28 Cee Bojorquez PA-C is PHCP. sb4 13:28 Tonny Segura MD is Attending Physician. sb4 13:55 Triage completed. ko1 13:55 Arm band placed on right wrist. Patient placed in an exam room, Patient notified of ko1 wait time. 14:01 Davina Espinosa is Primary Nurse. cp4 14:01 Placed in gown. Bed in low position. Call light in reach. cp4 14:01 No provider procedures requiring assistance completed. cp4 15:01 BMP Sent. cp4 15:01 CBC with Diff Sent. cp4 15:01 Inserted saline lock: 20 gauge in right antecubital area, using aseptic technique. cp4 Blood collected. Administered Medications: 15:15 Drug: NS 0.9% IV 1000 ml IV at 1 bolus Per protocol; 1000 mL bolus Route: IV; Rate: 1 cp4 bolus; Site: right antecubital; 15:16 Drug: morphine IVP or IV 4 mg IVP once over 4 mins Route: IVP; Infused Over: 4 mins; cp4 Site: right antecubital; 15:16 Drug: Ondansetron IVP 4 mg IVP once; over 2 minutes Route: IVP; Site: right antecubital;cp4 16:10 Drug: Lidocaine Mucous Membrane Gel 2 % 1 application Mucous Membrane once; per rectum cp4 Route: Mucous Membrane; Medication: 14:01 VIS not applicable for this client. cp4 Outcome: 16:29 Discharge ordered by . sb4 16:46 Patient left the ED. 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
[2023-05-12 17:31] VITALS: TEMP 98.1
[2023-05-12 17:32] VITALS: BP 127/74; O2SAT 100
== END 2023-05-12 16:46 | disposition home or self-care (01) ==
LOC: ER 13:06
DX: K64.9 Unspecified hemorrhoids (principal); Z88.0 Allergy status to penicillin; Z88.8 Allergy status to other drugs, medicaments and biological substances
CPT/HCPCS: 85025; 80048; 36415; 96375; 96374; 99284; J2405; J7030

== ENCOUNTER 2024-03-15 05:14 | Emergency (ER) | payer BC ==
--- OUTSIDE RECORDS SUMMARY | 2024-03-15 05:19 | XMS REPORT | Continuity of Care Document ---
Author Name Unknown Address [address] [facility] [address] [place] [address] [facility] thconnect Address [address] 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 Name Role Phone Curtis Hernandez Primary Care Physician [phone] ANNABEL GUERRA Attending Clinician Unavailable Angelique Quijano MD Attending Clinician [phone] [email or web address]_S Attending Clinician Unavaila ble DICLEMENTE_ANNABEL Attending Clinician Unavailab le Maluf_C Attending Clinician Unavailable [email or web address]_Kadiyala_S Admitting Clinician Unavaila ble DICLEMENTE_ANNABEL Admitting Clinician Unavailab le Maluf_C Admitting Clinician Unavailable Payers Payer Name Policy Type Policy Number Effective Date Expirati on Date Source [facility] [id number] 2017 00:00:00 [employer] (PPO) [id number] Allergies, Adverse Reactions, Alerts Allergy Name Allergy Type Status Severity Reaction(s) Onset Date Inactive Date Treating Clinician Comments Source Cortison e Propensi ty to adverse reaction s Active Swelling 06-27 00:00: 00 [facility] Predniso ne Propensi ty to adverse reaction s Active Swelling 06-27 00:00: 00 [facility] Thyroid Propensi ty to adverse reaction s Active 06-27 00:00: 00 [facility] Social History Social Habit Start Date Stop Date Quantity Comments Source Sexual orientation [facility] Alcoholic beverage intake 2023-09-07 00:00:00 2023-09-07 00:00:00 Lifetime non-drinker (finding) [facility] History of Social function 2023-09-07 00:00:00 2023-09-07 00:00:00 [facility] Tobacco use and exposure 2023-06-27 00:00:00 2023-06-27 00:00:00 Smokeless tobacco non-user [facility] Sex assigned at 1985 00:00:00 1985 00:00:00 [facility] Smoking Status Start Date Stop Date Source Never smoked tobacco [facility] Medications Ordered Medication Name Filled Medication Name Start Date Stop Date Current Medication? Ordering Clinician Indication Dosage Frequency Signature (SIG) Comments Components Source acetaminoph en-codeine (Tylenol w/ Codeine #3) 300-30 MG tablet 06-27 15:35: 35 Yes 1{tbl} Q6H Take 1 tablet by mouth every 6 (six) hours if needed. [facility] Vital Signs Vital Name Observation Time Observation Value Comments S ource Systolic blood pressure 2024-01-06 14:19:00 148 mm[Hg] [facility] Diastolic blood pressure 2024-01-06 14:19:00 81 mm[Hg] [facility] Heart rate 2024-01-06 14:19:00 82 /min [facility] Body temperature 2024-01-06 14:19:00 36.44 Briana [facility] Body weight 2024-01-06 14:19:00 117.935 kg [facility] BMI 2024-01-06 14:19:00 43.27 kg/m2 [facility] Systolic blood pressure 2023-08-31 15:58:00 130 mm[Hg] [facility] Diastolic blood pressure 2023-08-31 15:58:00 87 mm[Hg] [facility] Heart rate 2023-08-31 15:58:00 65 /min [facility] Body temperature 2023-08-31 15:58:00 36.83 Briana [facility] Body weight 2023-08-31 15:58:00 117.935 kg [facility] BMI 2023-08-31 15:58:00 43.27 kg/m2 [facility] Systolic blood pressure 2023-07-13 18:14:00 124 mm[Hg] [facility] Diastolic blood pressure 2023-07-13 18:14:00 84 mm[Hg] [facility] Heart rate 2023-07-13 18:14:00 79 /min [facility] Body temperature 2023-07-13 18:14:00 36.78 Briana [facility] Body height 2023-07-13 18:14:00 165.1 cm [facility] Body weight 2023-07-13 18:14:00 117.935 kg [facility] BMI 2023-07-13 18:14:00 43.27 kg/m2 [facility] Systolic blood pressure 2023-06-27 21:36:00 137 mm[Hg] [facility] Diastolic blood pressure 2023-06-27 21:36:00 87 mm[Hg] [facility] Heart rate 2023-06-27 21:36:00 65 /min [facility] Body temperature 2023-06-27 21:36:00 36.83 Briana [facility] Respiratory rate 2023-06-27 21:36:00 10 /min [facility] Body height 2023-06-27 21:36:00 162.6 cm [facility] Body weight 2023-06-27 21:36:00 117.935 [facility] BMI 2023-06-27 21:36:00 44.63 kg/m2 [facility] Encounters Start Date/Time End Date/Time Encounter Type Admission Type Attending [facility] Facility Care Department Encounter ID Source 2024-04-20 14:30:00 2024-04-20 14:30:00 Outpatient ANNABEL GUERRA [facility] [id number] [facility] 2024-01-06 09:30:00 2024-01-06 11:22:07 Office Visit Angelique Quijano [facility] [id number] [facility] 2023-11-30 09:15:00 2023-11-30 09:15:00 Outpatient QUIJANOANGELIQUE [facility] [id number] [facility] 2023-08-31 10:00:00 2023-08-31 11:36:59 Office Visit QuijanoAngelique [facility] [id number] [facility] 2023-08-03 10:30:00 2023-08-03 11:46:55 Office Visit Angelique Quijano [facility] [id number] [facility] 2023-07-21 10:00:00 2023-07-21 10:00:00 Outpatient ANGELIQUE QUIJANO [facility] [id number] [facility] 2023-07-13 11:00:00 2023-07-13 12:34:16 Office Visit Angelique Quijano [facility] [id number] [facility] 2023-07-07 09:15:00 2023-07-07 09:15:00 Outpatient ANGELIQUE QUIJANO [facility] [id number] [facility] 2023-06-27 15:00:00 2023-06-27 16:59:43 [facility] [id number] [facility] 2023-04-11 00:00:00 2023-04-11 00:00:00 Outpatient GC_GCBZW_Ka diyala_S PRIV PRIV [id number] [facility] 2023-04-10 00:00:00 2023-04-10 00:00:00 Outpatient GC_GCBZW_Ka diyala_S PRIV PRIV [id number] [facility] 2021-12-22 04:01:00 2021-12-22 04:01:00 Outpatient SIM_ ANNABEL LOREDO VTTAMMY [id number] [facility] 2020-04-30 02:42:00 2020-04-30 02:42:00 Outpatient Maluf_C MMG [facility] [id number] [facility]
[2024-03-15] MEDS ORDERED: DERMABOND SKIN ADHESIVE TOP ONE (05:22)
--- NOTE | 2024-03-15 05:32 | EDPHYS ---
Physician Documentation [facility] Name: Grazyna Barcenas Age: 38 yrs Sex: Female : 1985 Arrival Date: 03/15/2024 Time: 05:14 Bed 5 Private MD: ED Physician Deven Doss HPI: 03/15 05:28 This 38 yrs old Female presents to ER via Unassigned with complaints of Laceration To sp3 Hand. 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 Patient cleaned wound at work and tried apply direct pressure but states that it was still bleeding. She then went to [facility] emergency center across the street where she states they "wanted $400 before they even put her in the room". She presents here for further evaluation. She is right-handed. No numbness or tingling, proximal joint involvement, significant bleeding or any other signs or symptoms on ROS noted at this time.. 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 - Infectious Disease History:: Denies. - Social history:: Smoking status: unknown. ROS: 05:29 Constitutional: Negative for fever, chills, and weight loss, Eyes: Negative for injury, sp3 pain, redness, and discharge, Neck: Negative for injury, pain, and swelling, Cardiovascular: Negative for chest pain, palpitations, and edema, Respiratory: Negative for shortness of breath, cough, wheezing, and pleuritic chest pain, Abdomen/GI: Negative for abdominal pain, nausea, vomiting, diarrhea, and constipation, Back: Negative for injury and pain, Neuro: Negative for headache, weakness, numbness, tingling, and seizure, Psych: Negative for depression, anxiety, suicide ideation, homicidal ideation, and hallucinations, Allergy/Immunology: Negative for hives, rash, and allergies, Endocrine: Negative for neck swelling, polydipsia, polyuria, polyphagia, and marked weight changes, 05:29 All other systems are negative, Exam: 05:29 Constitutional: This is a well developed, well nourished patient who is awake, alert, sp3 and in no acute distress. Head/Face: Normocephalic, atraumatic. Chest/axilla: Normal chest wall appearance and motion. Nontender with no deformity. No lesions are appreciated. Cardiovascular: Regular rate and rhythm with a normal S1 and S2. No gallops, murmurs, or rubs. Normal PMI, no JVD. No pulse deficits. Respiratory: Lungs have equal breath sounds bilaterally, clear to auscultation and percussion. No rales, rhonchi or wheezes noted. No increased work of breathing, no retractions or nasal flaring. Neuro: Awake and alert, GCS 15, oriented to person, place, time, and situation. Cranial nerves II-XII grossly intact. Motor strength 5/5 in all extremities. Sensory grossly intact. Cerebellar exam normal. Normal gait. 05:29 Musculoskeletal/extremity: Left hand superficial laceration 1 cm on the left medial dorsal portion of the hand. No active bleeding noted however patient requesting Dermabond due to her occupation.. Vital Signs: 05:32 BP 149 / 88; Pulse 86; Resp 20; Pulse Ox 98% on R/A; kj2 05:35 BP 149 / 88; Pulse 85; Resp 20; Temp 97.9; Pulse Ox 97% on R/A; Weight 113.4 kg; Height kj2 5 ft. 5 in. ; Pain 6/10; 05:53 BP 140 / 84; Pulse 80; Resp 18; Temp 98; Pulse Ox 100% on R/A; kj2 05:35 Body Mass Index 41.60 (113.40 kg, 165.1 cm) kj2 05:35 Pain Scale: Adult kj2 MDM: 05:27 Patient medically screened. sp3 05:30 Data reviewed: vital signs, nurses notes. ED course: Dermabond applied 3 layers and sp3 patient will be safely discharged home at this time. Wound was also cleaned and tetanus has been updated.. Administered Medications: 05:53 Drug: Boostrix Tdap IM 0.5 ml IM once; as a single dose Route: IM; Site: right deltoid; kj2 05:53 Follow up: Response: No adverse reaction; Medication administered at discharge. kj2 Disposition Summary: 03/15/24 05:31 Discharge Ordered Notes: Location: Home sp3 Condition: Stable sp3 Diagnosis - Laceration to left hand, Dermabond repair sp3 Followup: sp3 - With: Private Physician - When: Upon discharge from the Emergency Department - Reason: Recheck today's complaints Discharge Instructions: - Discharge Summary Sheet sp3 - Tissue Adhesive Wound Care sp3 Forms: - Medication Reconciliation Form sp3 - Antibiotic Education sp3 - Prescription Opioid Use sp3 - Patient Portal Instructions sp3 - Leadership Thank You Letter sp3 Prescriptions: - Bactrim DS 800-160 mg Oral Tablet - take 1 tablet ORAL route every 12 hours for 3 days; 6 tablet; Refills: 0, sp3 Product Selection Permitted Signatures: Deven Doss MD MD sp3 Davina Espinosa cp4 Sophie Arevalo RN RN kj2
[2024-03-15] MEDS ORDERED: TDAP (DIPHTH,PERTUSS(ACELL),TET VAC) 0.5 ML VIAL IMVAC ONE (05:48)
--- NOTE | 2024-03-15 05:55 | ER ---
Nurse's Notes [facility] Name: Grazyna Barcenas Age: 38 yrs Sex: Female : 1985 Arrival Date: 03/15/2024 Time: 05:14 Bed 5 Private MD: Diagnosis: Laceration to left hand, Dermabond repair Presentation: 03/15 05:32 Chief complaint: Patient states: CUT HER HAND AT WORK. Coronavirus screen: At this kj2 time, the client does not indicate any symptoms associated with coronavirus-19. Ebola Screen: No symptoms or risks identified at this time. Complicating Factors: LACERATION ON LEFT HAND. Initial Sepsis Screen: Does the patient meet any 2 criteria? No. Patient's initial sepsis screen is negative. Does the patient have a suspected source of infection? No. Patient's initial sepsis screen is negative. Risk Assessment: Do you want to hurt yourself or someone else? Patient reports no desire to harm self or others. Onset of symptoms was March 15, 2024. 05:32 Method Of Arrival: Ambulatory kj2 05:32 Acuity: LYDIA 3 kj2 Triage Assessment: 05:36 General: Appears in no apparent distress. uncomfortable, Behavior is calm, cooperative. kj2 Pain: Complains of pain in LEFT HAND Pain currently is 6 out of 10 on a pain scale. Neuro: Level of Consciousness is awake, alert, obeys commands, Oriented to person, place, time, situation. Cardiovascular: Patient's skin is warm and dry. Respiratory: Airway is patent Respiratory effort is even, unlabored. GI: No signs and/or symptoms were reported involving the gastrointestinal system. : No signs and/or symptoms were reported regarding the genitourinary system. Injury Description: Laceration sustained to LEFT HAND. FERRULER: 05:35 1, Full Term 1, Premature 0, 0, Living 1, LMP 03/10/2024, kj2 unknown Historical: - Allergies: 05:34 Cortisone; kj2 05:34 Levothyroxine Sodium; kj2 05:34 PENICILLINS; kj2 05:34 Prednisone; kj2 - Immunization history:: Adult Immunizations unknown. - Infectious Disease History:: Denies. - Social history:: Smoking status: unknown. Screenin:38 [facility] ED Fall Risk Assessment (Adult) History of falling in the last 3 months, kj2 including since admission No falls in past 3 months (0 pts) Confusion or Disorientation No (0 pts) Intoxicated or Sedated No (0 pts) Impaired Gait No (0 pts) Mobility Assist Device Used No (0 pt) Altered Elimination Yes (1 pt) Score/Fall Risk Level 0 - 2 = Low Risk Maintained a safe environment, Hourly rounding (assess needs \T\ fall precautionary measures) done. Abuse screen: Denies threats or abuse. Denies injuries from another. Nutritional screening: No deficits noted. Tuberculosis screening: No symptoms or risk factors identified. Assessment: 05:41 Musculoskeletal: kj2 05:43 Injury Description: Laceration is not bleeding. kj2 Vital Signs: 05:32 BP 149 / 88; Pulse 86; Resp 20; Pulse Ox 98% on R/A; kj2 05:35 BP 149 / 88; Pulse 85; Resp 20; Temp 97.9; Pulse Ox 97% on R/A; Weight 113.4 kg; Height kj2 5 ft. 5 in. ; Pain 6/10; 05:53 BP 140 / 84; Pulse 80; Resp 18; Temp 98; Pulse Ox 100% on R/A; kj2 05:35 Body Mass Index 41.60 (113.40 kg, 165.1 cm) kj2 05:35 Pain Scale: Adult kj2 ED Course: 05:20 Patient arrived in ED. gm2 05:21 Deven Doss MD is Attending Physician. sp3 05:22 Sophie Arevalo, RN is Primary Nurse. kj2 05:34 Triage completed. kj2 05:38 Arm band placed on Patient placed in an exam room. kj2 05:39 Patient has correct armband on for positive identification. Call light in reach. kj2 Provided Education on: CALL LIGHT. 05:43 Assist provider with laceration repair Dressed with 4X4s. Patient did not have IV kj2 access during this emergency room visit. Administered Medications: 05:53 Drug: Boostrix Tdap IM 0.5 ml IM once; as a single dose Route: IM; Site: right deltoid; kj2 05:53 Follow up: Response: No adverse reaction; Medication administered at discharge. kj2 Medication: 05:44 Vaccine Information Statement (VIS) provided today. Questions and/or concerns kj2 addressed. VIS edition date: January 16, 2021. Outcome: 05:31 Discharge ordered by . sp3 05:41 Discharged to home ambulatory, kj2 05:41 Condition: stable 05:41 Discharge instructions given to Instructed on discharge instructions, follow up and referral plans. Demonstrated understanding of instructions, follow-up care, 05:54 Patient left the ED. kj2 Signatures: Deven Doss MD MD sp3 Nelly Lino gm2 Sophie Arevalo RN RN kj2
[2024-03-15 20:26] VITALS: BP 140/84; TEMP 98; O2SAT 100
== END 2024-03-15 05:54 | disposition home or self-care (01) ==
LOC: ER 05:14
DX: S61.412A Laceration without foreign body of left hand, initial encounter (principal)
CPT/HCPCS: 96372; 99284

== ENCOUNTER 2024-04-20 06:00 | Emergency (ER) | payer BC ==
--- OUTSIDE RECORDS SUMMARY | 2024-04-20 06:03 | XMS REPORT | Continuity of Care Document ---
Author Name Unknown Address [address] [place] [address] [facility] thconnect Address [address] [place] [address] Care Team Providers Care Grant Coordinator Name Role Phone Curtis Hernandez Primary Care Physician [phone] ANNABEL GUERRA Attending Clinician Unavailable Angelique Quijano MD Attending Clinician [phone] [email or web address]_Kadiyala_S Attending Clinician Unavaila ble DICLEMENTE_ANNABEL Attending Clinician Unavailab le Maluf_C Attending Clinician Unavailable GC_GCBZW_Kadiyala_S Admitting Clinician Unavaila ble DICLEMENTE_ANNABEL Admitting Clinician Unavailab le Maluf_C Admitting Clinician Unavailable Payers Payer Name Policy Type Policy Number Effective Date Expirati on Date Source [facility] [id number] 2017 00:00:00 2024 00:00:00 [employer] (PPO) [id number] Allergies, Adverse Reactions, Alerts Allergy Name Allergy Type Status Severity Reaction(s) Onset Date Inactive Date Treating Clinician Comments Source Cortison e Propensi ty to adverse reaction s Active Swelling 06-27 00:00: 00 [facility] Predniso ne Propensi ty to adverse reaction s Active Swelling 06-27 00:00: 00 [facility] Thyroid Propensi ty to adverse reaction s Active 06-27 00:00: 00 [facility] Social History Social Habit Start Date Stop Date Quantity Comments Source Sexual orientation [facility] Alcoholic beverage intake 2023-09-07 00:00:00 2023-09-07 00:00:00 Lifetime non-drinker (finding) [facility] History of Social function 2023-09-07 00:00:00 2023-09-07 00:00:00 [facility] Tobacco use and exposure 2023-06-27 00:00:00 2023-06-27 00:00:00 Smokeless tobacco non-user [facility] Sex assigned at 1985 00:00:00 1985 00:00:00 [facility] Smoking Status Start Date Stop Date Source Never smoked tobacco [facility] th Medications Ordered Medication Name Filled Medication Name Start Date Stop Date Current Medication? Ordering Clinician Indication Dosage Frequency Signature (SIG) Comments Components Source acetaminoph en-codeine (Tylenol w/ Codeine #3) 300-30 MG tablet 06-27 15:35: 35 Yes 1{tbl} Q6H Take 1 tablet by mouth every 6 (six) hours if needed. [facility] Vital Signs Vital Name Observation Time Observation Value Comments S ource Systolic blood pressure 2024-01-06 14:19:00 148 mm[Hg] [facility] Diastolic blood pressure 2024-01-06 14:19:00 81 mm[Hg] [facility] Heart rate 2024-01-06 14:19:00 82 /min [facility] Body temperature 2024-01-06 14:19:00 36.44 Briana [...] BMI 2023-08-31 15:58:00 43.27 [facility] Systolic blood pressure 2023-07-13 18:14:00 124 mm[Hg] [...] Systolic blood pressure 2023-06-27 21:36:00 137 mm[Hg] [facility] Diastolic blood pressure 2023-06-27 21:36:00 87 mm[Hg] [facility] Heart rate 2023-06-27 21:36:00 65 /min [facility] Body temperature 2023-06-27 21:36:00 36.83 Briana [facility] Respiratory rate 2023-06-27 21:36:00 10 /min [facility] Body height 2023-06-27 21:36:00 162.6 cm [facility] Body weight 2023-06-27 21:36:00 117.935 [facility] BMI 2023-06-27 21:36:00 44.63 kg/m2 [facility] Encounters Start Date/Time End Date/Time Encounter Type Admission Type Attending [facility] Facility Care Department Encounter ID Source 2024-04-20 14:30:00 2024-04-20 14:30:00 Outpatient ANNABEL GUERRA [facility] [id number] [facility] 2024-01-06 09:30:00 2024-01-06 11:22:07 [facility] [id number] [facility] 2023-11-30 09:15:00 2023-11-30 09:15:00 Outpatient QUIJANOANGELIQUE [facility] [id number] [facility] 2023-08-31 10:00:00 2023-08-31 11:36:59 [facility] [id number] [facility] 2023-08-03 10:30:00 2023-08-03 11:46:55 Office Visit Angelique Quijano [facility] [id number] [facility] 2023-07-21 10:00:00 2023-07-21 10:00:00 Outpatient ANGELIQUE QUIJANO [facility] [id number] [facility] 2023-07-13 11:00:00 2023-07-13 12:34:16 Office Visit Angelique [facility]ij[facility] [id number] [facility] 2023-07-07 09:15:00 2023-07-07 09:15:00 Outpatient ANGELIQUE QUIJANO [facility] [id number] [facility] 2023-06-27 15:00:00 2023-06-27 16:59:43 Office Visit Angelique [facility]ij[facility] [id number] [facility] 2023-04-11 00:00:00 2023-04-11 00:00:00 Outpatient GC_GCBZW_Ka diyala_S PRIV PRIV [id number] [facility] 2023-04-10 00:00:00 2023-04-10 00:00:00 Outpatient GC_GCBZW_Ka diyala_S PRIV PRIV [id number] [facility] 2021-12-22 04:01:00 2021-12-22 04:01:00 Outpatient DICJOSE DANIELE_ ANNABEL [place]ED[place] [id number] [place] [facility] 2020-04-30 02:42:00 2020-04-30 02:42:00 Outpatient Maluf_C [facility] [address] [facility]
[2024-04-20] MEDS ORDERED: LIDOCAINE 2% W/EPI 1:200,000 MPF 20 ML VIAL IM ONE (06:16)
[2024-04-20] MEDS ORDERED: CIPROFLOXACIN HCL 500 MG TAB ONE (07:17)
--- NOTE | 2024-04-20 07:30 | EDPHYS ---
Physician Documentation [facility] Name: Grazyna Barcenas Age: 38 yrs Sex: Female : 1985 Arrival Date: 04/20/2024 Time: 06:00 Bed 5 Private MD: ED Physician Constantine Ying HPI: 04/20 06:15 This 38 yrs old Female presents to ER via Unassigned with complaints of Hand ec2 Injury. 06:15 Patient arrives today after injuring herself on the left hand. States within the space ec2 of the first and second digit she has a spine of a fish. No other concerns. Up-to-date on tetanus status.. Historical: - Allergies: 06:17 Cortisone; ha1 06:17 Levothyroxine Sodium; ha1 06:17 PENICILLINS; ha1 06:17 Prednisone; ha1 - Immunization history:: Adult Immunizations up to date, Last tetanus immunization: up to date. - Infectious Disease History:: Denies. - Social history:: Smoking status: Patient denies any tobacco usage or history of. ROS: 06:15 Constitutional: as per hpi ec2 Exam: 06:15 Constitutional: GEN: NAD Head: atraumatic Eyes: EOMI Ears: External ears are ec2 normal. CV: regular rate LUNGS: no respiratory distress ABD: non-distended SKIN: Dried blood present on the left hand. Spiny process in the web between the first and second digit. MSK: no evidence of trauma Vital Signs: 06:13 BP 165 / 99; Pulse 76; Resp 17 S; Temp 97.6(T); Pulse Ox 100% on R/A; Weight 104.33 kg; ha1 Height 5 ft. 4 in. ; 06:13 Body Mass Index 39.48 (104.33 kg, 162.56 cm) ha1 Procedures: 06:25 Foreign Body Removal: a fish bone, from the left left hand, by using alligator clamps, ec2 lidocaine lavage, The patient tolerated the removal well. MDM: 06:12 Medical Screening Exam initiated ec2 06:15 Data reviewed: vital signs. ED course: Patient arrives today with a retained foreign ec2 body. Will perform local anesthesia and attempt to remove the foreign body.. 06:55 ED course: Hand x-ray independently reviewed and interpreted by me, shows no retained ec2 foreign body. Will discharge home have the patient follow-up outpatient expectantly.. 07:15 ED course: Patient states that there is no chance that she could be as she is ec2 not sexually active and is okay with proceeding w/ abx. 04/20 07:47 Order name: ELLIE AVERY 04/20 06:26 Order name: Wound Care; Complete Time: 06:54 ec2 Administered Medications: 06:21 Drug: Lidocaine Infiltration (1 %) 10 ml 20 ml Infiltration once; to bedside {Note: jj7 ADMIN BY DR YING.} Volume: 20 ml; Route: Infiltration; 06:55 Follow up: Response: No adverse reaction; Marked relief of symptoms ha1 07:25 Drug: Ciprofloxacin PO 750 mg PO once Route: PO; iw Disposition Summary: 04/20/24 07:29 Discharge Ordered Notes: Location: Home ec2 Condition: Stable ec2 Diagnosis - Foreign Body in Hand ec2 Followup: ec2 - With: Private Physician - When: - Reason: Re-evaluation by your physician Discharge Instructions: - Discharge Summary Sheet ec2 - Cellulitis, Adult, Ptky-[id number]-[id number] ec2 Forms: - Work release form iw - Medication Reconciliation Form ec2 - Antibiotic Education ec2 - Prescription Opioid Use ec2 - Patient Portal Instructions ec2 - Leadership Thank You Letter ec2 Prescriptions: - Cipro 250 mg Oral tablet - take 3 tablet ORAL route every 12 hours; 60 tablet; Refills: 0, Product ec2 Selection Permitted Signatures: Dispatcher [employer] Yesenia Fernández RN RN iw Josi Vela RN RN [email or web address] Harini He RN RN jj7 Constantine Ying MD MD ec2
--- NOTE | 2024-04-20 07:30 | ER ---
Nurse's Notes [facility] Name: Grazyna Barcenas Age: 38 yrs Sex: Female : 1985 Arrival Date: 04/20/2024 Time: 06:00 Bed 5 Private MD: Diagnosis: Foreign Body in Hand Presentation: 04/20 06:13 Chief complaint: Patient states: I was fishing and got a fish hook in my left hand. ha1 Coronavirus screen: Vaccine status: Patient reports being unvaccinated. Ebola Screen: No symptoms or risks identified at this time. Initial Sepsis Screen: Does the patient meet any 2 criteria? No. Patient's initial sepsis screen is negative. Does the patient have a suspected source of infection? No. Patient's initial sepsis screen is negative. Risk Assessment: Do you want to hurt yourself or someone else? Patient reports no desire to harm self or others. Onset of symptoms was April 20, 2024. 06:13 Method Of Arrival: Ambulatory ha1 06:13 Acuity: LYDIA 3 ha1 Triage Assessment: 06:17 General: Appears uncomfortable, Behavior is calm, cooperative. Pain: Complains of pain ha1 in left hand Pain does not radiate. Pain currently is 10 out of 10 on a pain scale. Quality of pain is described as throbbing, Pain began suddenly, 1 hour ago. Neuro: Level of Consciousness is awake, alert, obeys commands, Oriented to person, place, time, situation. Musculoskeletal: Circulation, motion, and sensation intact. Injury Description: Laceration sustained to left hand is 2.6 to 7.5 cm long, was sustained 1-2 hours ago. moderate bleeding noted at this time. Historical: - Allergies: 06:17 Cortisone; ha1 06:17 Levothyroxine Sodium; ha1 06:17 PENICILLINS; ha1 06:17 Prednisone; ha1 - Immunization history:: Adult Immunizations up to date, Last tetanus immunization: up to date. - Infectious Disease History:: Denies. - Social history:: Smoking status: Patient denies any tobacco usage or history of. Screenin:25 [facility] ED Fall Risk Assessment (Adult) History of falling in the last 3 months, iw including since admission No falls in past 3 months (0 pts) Confusion or Disorientation No (0 pts) Intoxicated or Sedated No (0 pts) Impaired Gait No (0 pts) Mobility Assist Device Used No (0 pt) Altered Elimination No (0 pt) Score/Fall Risk Level 0 - 2 = Low Risk Maintained a safe environment. Abuse screen: Denies injuries from another. Abuse screen: Denies threats or abuse. Nutritional screening: No deficits noted. Tuberculosis screening: No symptoms or risk factors identified. Assessment: 06:06 Reassessment: see triage assessment. ha1 06:55 Reassessment: Patient and/or family updated on plan of care and expected duration. Pain ha1 level reassessed. Patient is alert, oriented x 3, equal unlabored respirations, skin warm/dry/pink. 07:25 Reassessment: Patient appears in no apparent distress at this time. Patient and/or iw family updated on plan of care and expected duration. Pain level reassessed. Patient is alert, oriented x 3, equal unlabored respirations, skin warm/dry/pink. Vital Signs: 06:13 BP 165 / 99; Pulse 76; Resp 17 S; Temp 97.6(T); Pulse Ox 100% on R/A; Weight 104.33 kg; ha1 Height 5 ft. 4 in. ; 06:13 Body Mass Index 39.48 (104.33 kg, 162.56 cm) ha1 ED Course: 06:02 Patient arrived in ED. jj6 06:12 Constantine Ying MD is Attending Physician. ec2 06:16 Harini He RN is Primary Nurse. jj7 06:17 Triage completed. ha1 07:25 Patient did not have IV access during this emergency room visit. iw 07:58 Primary Nurse role handed off by Harini He RN iw 07:58 Yesenia Tuttle, SAIDA is Primary Nurse. iw Administered Medications: 06:21 Drug: Lidocaine Infiltration (1 %) 10 ml 20 ml Infiltration once; to bedside {Note: jj7 ADMIN BY DR YING.} Volume: 20 ml; Route: Infiltration; 06:55 Follow up: Response: No adverse reaction; Marked relief of symptoms ha1 07:25 Drug: Ciprofloxacin PO 750 mg PO once Route: PO; iw Outcome: 07:29 Discharge ordered by . ec2 07:58 Patient left the ED. iw Signatures: Yesenia Tuttle, RN RN iw Shayy Mg jj6 Josi Vela RN RN ha1 Harini He RN RN jj7 Constantine Ying MD MD ec2
--- NOTE | 2024-04-20 07:47 | RAD REPORT ---
EXAM: XR LEFT HAND HISTORY: Pain. PAIN COMPARISON: None TECHNIQUE: Multiple projections of the left hand submitted. FINDINGS: Soft tissue swelling affects the second finger.. No fracture or radiopaque foreign body.
== END 2024-04-20 07:58 | disposition home or self-care (01) ==
LOC: ER 06:00
DX: S60.552A Superficial foreign body of left hand, initial encounter (principal)
CPT/HCPCS: 99282

== ENCOUNTER 2024-08-18 21:00 | Emergency (ER) | payer BC, SELFPAY ==
--- OUTSIDE RECORDS SUMMARY | 2024-08-18 21:03 | XMS REPORT | Continuity of Care Document ---
Author Name Unknown Address [address] [place] [address] [facility] Address [address] [place] [address] Care Team Providers Care Dowel Maker Name Role Phone Curtis Hernandez Primary Care Physician [phone] ANNABEL GUERRA Attending Clinician Unavailable Angelique Quijano MD Attending Clinician [phone] [email or web address]_Kadiyala_S Attending Clinician Unavaila ble DICLEMENTE_ANNABEL Attending Clinician Unavailab le Maluf_C Attending Clinician Unavailable [email or web address]_Kadiyala_S Admitting Clinician Unavaila ble DICLEMENTE_ANNABEL Admitting Clinician Unavailab le Maluf_C Admitting Clinician Unavailable Payers Payer Name Policy Type Policy Number Effective Date Expirati on Date Source [facility] [id number] 2017 00:00:00 2024 00:00:00 [employer] (PPO) [id number] Allergies, Adverse Reactions, Alerts Allergy Name Allergy Type Status Severity Reaction(s) Onset Date Inactive Date Treating Clinician Comments Source Cortison e Propensi ty to adverse reaction s Active Swelling 06-27 00:00: 00 [facility] Predniso ne Propensi ty to adverse reaction s Active Swelling 06-27 00:00: 00 [facility] Thyroid Propensi ty to adverse reaction s Active 06-27 00:00: 00 [facility] Social History Social Habit Start Date Stop Date Quantity Comments Source Sexual orientation [facility] Alcoholic beverage intake 2023-09-07 00:00:00 2023-09-07 00:00:00 Lifetime non-drinker (finding) [facility] History of Social function 2023-09-07 00:00:00 2023-09-07 00:00:00 [facility] Tobacco use and exposure 2023-06-27 00:00:00 2023-06-27 00:00:00 Smokeless tobacco non-user [facility] Sex assigned at 1985 00:00:00 1985 00:00:00 [facility] Smoking Status Start Date Stop Date Source Never smoked tobacco [facility] th Medications Ordered Medication Name Filled Medication Name Start Date Stop Date Current Medication? Ordering Clinician Indication Dosage Frequency Signature (SIG) Comments Components Source acetaminoph en-codeine (Tylenol w/ Codeine #3) 300-30 MG tablet 06-27 15:35: 35 Yes 1{tbl} Q6H Take 1 tablet by mouth every 6 (six) hours if needed. [facility] Vital Signs Vital Name Observation Time Observation Value Comments S ource Systolic blood pressure 2024-01-06 14:19:00 148 mm[Hg] [facility] Diastolic blood pressure 2024-01-06 14:19:00 81 [...] BMI 2023-08-31 15:58:00 43[facility]27 [facility] Systolic blood pressure 2023-07-13 18:14:00 124 mm[Hg] [...] Systolic blood pressure 2023-06-27 21:36:00 137 mm[Hg] [facility] Diastolic blood pressure 2023-06-27 21:36:00 87 mm[Hg] [facility] Heart rate 2023-06-27 21:36:00 65 /min [facility] Body temperature 2023-06-27 21:36:00 36.83 Briana [facility] Respiratory rate 2023-06-27 21:36:00 10 /min [facility] Body height 2023-06-27 21:36:00 162.6 cm [facility] Body weight 2023-06-27 21:36:00 117.935 kg [facility] BMI 2023-06-27 21:36:00 44.63 kg/m2 [facility] Encounters Start Date/Time End Date/Time Encounter Type Admission Type Attending [facility] Facility Care Department Encounter ID Source 2024-04-20 14:30:00 2024-04-20 14:30:00 Outpatient ANNABEL GUERRA [facility] [id number] [facility] 2024-01-06 09:30:00 2024-01-06 11:22:07 Office Visit Angelique Quijano [facility] [id number] [facility] 2023-11-30 09:15:00 2023-11-30 09:15:00 Outpatient ANGELIQUE QUIJANO [facility] [id number] [facility] 2023-08-31 10:00:00 2023-08-31 11:36:59 Office Visit QuijanoAngelique [facility] [id number] [facility] 2023-08-03 10:30:00 2023-08-03 11:46:55 Office Visit Angelique Quijano [facility] [id number] [facility] 2023-07-21 10:00:00 2023-07-21 10:00:00 Outpatient ANGELIQUE QUIJANO [facility] [id number] [facility] 2023-07-13 11:00:00 2023-07-13 12:34:16 [facility] [id number] [facility] 2023-07-07 09:15:00 2023-07-07 09:15:00 Outpatient ANGELIQUE QUIJANO [facility] [id number] [facility] 2023-06-27 15:00:00 2023-06-27 16:59:43 Office Visit Angelique Quijano [facility] [id number] [facility] 2023-04-11 00:00:00 2023-04-11 00:00:00 Outpatient GC_GCBZW_Ka diyala_S PRIV PRIV [id number] [facility] 2023-04-10 00:00:00 2023-04-10 00:00:00 Outpatient GC_GCBZW_Ka diyala_S PRIV PRIV [id number] [facility] 2021-12-22 04:01:00 2021-12-22 04:01:00 Outpatient SIM_ ANNABEL LOREDO [id number] [place] [facility] [place] 2020-04-30 02:42:00 2020-04-30 02:42:00 Outpatient Maluf_C [facility] [address] [place] [facility]
--- NOTE | 2024-08-18 21:47 | RAD REPORT ---
EXAM: Chest Single View HISTORY: 39 years Female CHEST PAIN COMPARISON: 08/23/2020 FINDINGS: LUNGS/PLEURA: The lungs are clear. No pleural effusions or pneumothorax. No pulmonary edema. CARDIAC/MEDIASTINUM: The cardiac silhouette is within normal limits. UPPER ABDOMEN: No significant abnormality. BONES: No acute abnormality. LINES/TUBES/OTHER: N/A IMPRESSION: No evidence of acute cardiopulmonary disease.
[2024-08-18 21:48] LABS: Absolute Eosinophils 0.1 K/uL (0-0.5); Absolute Lymphocytes (CBC) 3.1 K/uL (0.7-4.9); Absolute Monocytes 0.7 K/uL (0.1-1.3); Absolute Neutrophil 7.4 K/uL (1.8-8.0); Basophils % 0.4 % (0-1.3); Eosinophils % 0.9 % (0-4.4); Hematocrit 36.6 % (36.0-45.0); Lymphocytes % 27.3 % (15.3-44.8); MCHC 32.8 g/dL (32.0-36.0); MCV 82.4 fL (80-100); MPV 7.7 fL (7.6-11.3); Neutrophils % 65.4 % (41.7-73.7); Nucleated Red Blood Cells % 0.1 % (0-0); Platelets 320 thou/uL (152-406); RBC Red Blood Cell Count 4.44 M/uL (3.86-4.86); Red Cell Distribution Width 13.7 % (12.1-15.2)
[2024-08-18 22:01] LABS: PT Prothrombin Time 10.7 SECONDS (10-13.0); Protime INR 0.94
[2024-08-18 22:05] LABS: ALT/SGPT 34 U/L (13-56); AST/SGOT 14 U/L (15-37); Albumin 3.1 g/dL (3.4-5.0); Albumin/Globulin Ratio 0.8 (1.1-1.8); Alkaline Phosphatase 76 U/L (45-117); Anion Gap 12.5 mEq/L (5.0-15.0); BUN Blood Urea Nitrogen 15 mg/dL (7-18); Bicarbonate 23 mEq/L (21-32); Bilirubin Total 0.2 mg/dL (0.2-1.0); Globulin 3.9 g/dL (2.3-3.5); Glomerular Filtration Rate 99 ml/min (=/>90); Glucose Level 140 mg/dL (74-106); Magnesium 2.2 mg/dL (1.6-2.4); NT PRO-BNP 15 pg/mL (<125); Potassium 3.5 mEq/L (3.5-5.1); Sodium Level 139 mEq/L (136-145)
[2024-08-18 22:13] LABS: Bilirubin Direct < 0.2 mg/dL (0-0.2); Troponin High Sensitivity < 3.0 pg/mL (<58.9)
[2024-08-18] MEDS ORDERED: ASPIRIN 81 MG CHEWABLE TABLET ONE (22:23)
--- NOTE | 2024-08-19 01:10 | RAD REPORT ---
EXAM: CT Angiography Chest With Intravenous Contrast CLINICAL HISTORY: The patient is 39 years old and is Female; CHEST PAIN TECHNIQUE: Axial computed tomographic angiography images of the chest with intravenous contrast. Sagittal an d coronal reformatted images were created and reviewed. This CT exam was performed using one or more of the following dose reduction techniques: automated exposure control, adjustment of the mA a nd/or kV according to patient size, and/or use of iterative reconstruction technique. MIP reconstructed images were created and reviewed. COMPARISON: No relevant prior studies available. FINDINGS: PULMONARY ARTERIES: There are no obvious filling defects identified within the pulmonary arteries to suggest pulmonary embolism. AORTA: No acute findings. No thoracic aortic aneurysm. LUNGS: Unremarkable. No mass. No consolidation. PLEURAL SPACE: Unremarkable. No significant effusion. No pneumothorax. HEART: Unremarkable. No cardiomegaly. No significant pericardial effusion. No evidence of R V dysfunction. BONES/JOINTS: No acute fracture. No dislocation. SOFT TISSUES: Unremarkable. LYMPH NODES: Unremarkable. No enlarged lymph nodes. IMPRESSION: 1. No evidence of pulmonary embolism. 2. No acute findings. Electronically signed by: Corazon Espino MD 08/19/2024 01:07 AM [facility] Due to temporary technical issues with the PACS/Gamelet reporting system, reports are being shavonne d by the in-house radiologist without review as a courtesy to ensure prompt reporting the interpreting radiologist is fully responsible for the content of the report. Transcribed Date/Time: 08/19/2024 1:09 AM
--- NOTE | 2024-08-19 01:13 | EDPHYS ---
Physician Documentation [facility] Name: Grazyna Barcenas Age: 39 yrs Sex: Female : 1985 Arrival Date: 08/18/2024 Time: 21:00 Bed 8 Private MD: ED Physician Pablo Ramos HPI: 08/18 21:35 This 39 yrs old Female presents to ER via Ambulatory with complaints of Chest Pain, sb4 Shortness Of Breath, Dizziness, High Blood Pressure, Headache. 23:15 Patient reports left-sided chest pain for the past 3 to 4 days. She states that it sb4 feels like a tightness. Describes the sensation of the pain in her chest like her menstrual cramps. Also reports a headache. States the pain is worse with deep breaths. States that she has been under a lot of stress recently. Additionally, her checked her blood pressure noted to be very elevated. She denies any history of hypertension. Historical: - Allergies: 21:34 Cortisone; ha1 21:34 Levothyroxine Sodium; ha1 21:34 PENICILLINS; ha1 21:34 Prednisone; ha1 - Immunization history:: Adult Immunizations up to date. - Infectious Disease History:: Denies. - Social history:: Smoking status: Patient denies any tobacco usage or history of. ROS: 23:15 Constitutional: Negative for fever, chills, and weight loss, sb4 23:15 Cardiovascular: Positive for chest pain, 23:15 Neuro: Positive for headache, 23:15 All other systems are negative, Exam: 23:17 Constitutional: This is a well developed, well nourished patient who is awake, alert, sb4 and in no acute distress. Head/Face: Normocephalic, atraumatic. Eyes: Extra-ocular motions intact. Periorbital areas with no swelling, redness, or edema. ENT: Mucous membranes moist. Cardiovascular: Regular rate and rhythm with a normal S1 and S2. Respiratory: No increased work of breathing, no retractions or nasal flaring. Abdomen/GI: Soft, non-tender, no distension. Skin: Warm, dry with normal turgor. Normal color with no rashes, no lesions, and no evidence of cellulitis. MS/ Extremity: Pulses equal, no cyanosis. Neurovascular intact. Full, normal range of motion. Neuro: Awake and alert, GCS 15, oriented to person, place, time, and situation. Motor strength 5/5 in all extremities. Sensory grossly intact. 23:17 Respiratory: Breath sounds: are clear throughout, Vital Signs: 21:10 BP 145 / 85; Pulse 84; Resp 18 S; Temp 98.2; Pulse Ox 100% on R/A; Weight 117.93 kg; ha1 Height 5 ft. 5 in. ; Pain 7/10; 22:30 BP 140 / 64; Pulse 86; Resp 18; Pulse Ox 96% ; cp4 23:54 BP 133 / 87; Pulse 82; Resp 16 S; Pulse Ox 98% on R/A; ha1 08/19 01:25 BP 104 / 69; Pulse 77; Resp 16; Pulse Ox 98% on R/A; dd2 08/18 21:10 Body Mass Index 43.27 (117.93 kg, 165.1 cm) ha1 08/18 21:10 Pain Scale: Adult ha1 MDM: 08/18 21:11 Medical Screening Exam initiated sb4 08/19 01:09 Data reviewed: vital signs, nurses notes, lab test result(s), EKG, radiologic studies, sb4 and as a result, I will discharge patient. Counseling: I had a detailed discussion with the patient and/or guardian regarding the historical points, exam findings, and any diagnostic results supporting the discharge/admit diagnosis, lab results, radiology results, the need for outpatient follow up, for definitive care, to return to the emergency department if symptoms worsen or persist or if there are any questions or concerns that arise at home. 08/18 21:16 Order name: Basic Metabolic Panel; Complete Time: 22:14 sb4 08/18 21:16 Order name: CBC with Diff; Complete Time: 22:03 sb4 08/18 21:16 Order name: LFT's; Complete Time: 22:14 sb4 08/18 21:16 Order name: Magnesium; Complete Time: 22:14 sb4 08/18 21:16 Order name: NT PRO-BNP; Complete Time: 22:14 sb4 08/18 21:16 Order name: PT-INR; Complete Time: 22:03 sb4 08/18 21:16 Order name: Troponin HS; Complete Time: 22:14 sb4 08/18 21:16 Order name: Test, Serum; Complete Time: 22:12 sb4 08/18 21:16 Order name: XRAY Chest (1 view); Complete Time: 21:48 sb4 08/18 22:39 Order name: Chest For PE Angio CT sb4 08/18 21:16 Order name: EKG; Complete Time: 21:17 sb4 08/18 21:16 Order name: Cardiac monitoring; Complete Time: 22:21 sb4 08/18 21:16 Order name: EKG - Nurse/Tech; Complete Time: 21:32 sb4 08/18 21:16 Order name: IV Saline Lock; Complete Time: 21:32 sb4 08/18 21:16 Order name: Labs collected and sent; Complete Time: 21:32 sb4 08/18 21:16 Order name: O2 Per Protocol; Complete Time: 21:32 sb4 08/18 21:16 Order name: O2 Sat Monitoring; Complete Time: 22:21 sb4 EC/08 21:22 Rate is 86 beats/min. Rhythm is regular, Normal Sinus Rhythm. UT interval is normal at sb4 86 msec. QRS interval is normal at 90 msec. QT interval is normal at 366 msec. No Q waves. T waves are Normal. No ST changes noted. Clinical impression: Normal ECG. Interpreted by me. Reviewed by me. Administered Medications: 22:26 Drug: Aspirin PO Chewable Tablet 324 mg PO once; 81 mg tablets x 4 Route: PO; ha1 23:00 Follow up: Response: No adverse reaction ha1 Disposition: 08/19 03:51 Co-signature as Attending Physician, Pablo Ramos MD I reviewed the patient's care rt provided by the Advanced Practice Provider and agree with the diagnosis and treatment plan. Disposition Summary: 08/19/24 01:12 Discharge Ordered Notes: Location: Home sb4 Problem: new sb4 Symptoms: have improved sb4 Condition: Stable sb4 Diagnosis - Chest pain, unspecified sb4 Followup: sb4 - With: Emergency Department - When: As needed - Reason: Trouble breathing, Worsening of condition Followup: sb4 - With: Private Physician - When: 1 week - Reason: Recheck today's complaints, Continuance of care, Re-evaluation by your physician Discharge Instructions: - Discharge Summary Sheet sb4 - Nonspecific Chest Pain, Adult, [id number] sb4 - Form - Blood Pressure Record Sheet sb4 Forms: - Patient Portal Instructions sb4 - Leadership Thank You Letter sb4 Signatures: Dispatcher [employer] Josi Rodríguez, RN RN ha1 Cee Bojorquez, TOOTIE SOMMERS sb4 Pablo Ramos MD MD rt Corrections: (The following items were deleted from the chart) 08/18 22:39 22:39 Chest For PE Angio+CT.RAD.BRZ ordered. EDMS EDMS
--- NOTE | 2024-08-19 01:13 | ER ---
Nurse's Notes [facility] Name: Grazyna Barcenas Age: 39 yrs Sex: Female : 1985 Arrival Date: 08/18/2024 Time: 21:00 Bed 8 Private MD: Diagnosis: Chest pain, unspecified Presentation: 08/18 21:10 Chief complaint: Patient states: CHEST PAIN AND SHORTNESS OF BREATH FOR THE PAST 3-4 ha1 DAYS. 21:10 Coronavirus screen: Client denies travel out of the [place] in the last 14 days. Ebola ha1 Screen: Patient negative for fever greater than or equal to 101.5 degrees Fahrenheit, and additional compatible Ebola Virus Disease symptoms. Initial Sepsis Screen: Does the patient meet any 2 criteria? No. Patient's initial sepsis screen is negative. Does the patient have a suspected source of infection? No. Patient's initial sepsis screen is negative. Risk Assessment: Do you want to hurt yourself or someone else? Patient reports no desire to harm self or others. Onset of symptoms was August 18, 2024. 21:10 Method Of Arrival: Ambulatory ha1 21:10 Acuity: LYDIA 2 ha1 Triage Assessment: 21:10 General: Appears uncomfortable, Behavior is cooperative. Pain: Complains of pain in ha1 chest Pain currently is 7 out of 10 on a pain scale. Quality of pain is described as pressure. Neuro: Level of Consciousness is awake, alert, obeys commands, Oriented to person, place, time, situation. Cardiovascular: Reports chest pain, shortness of breath, Capillary refill < 3 seconds Patient's skin is warm and dry. Respiratory: Airway is patent Respiratory effort is even, unlabored, Respiratory pattern is. GI: No signs and/or symptoms were reported involving the gastrointestinal system. : No signs and/or symptoms were reported regarding the genitourinary system. Historical: - Allergies: 21:34 Cortisone; ha1 21:34 Levothyroxine Sodium; ha1 21:34 PENICILLINS; ha1 21:34 Prednisone; ha1 - Immunization history:: Adult Immunizations up to date. - Infectious Disease History:: Denies. - Social history:: Smoking status: Patient denies any tobacco usage or history of. Screenin:27 [facility] ED Fall Risk Assessment (Adult) History of falling in the last 3 months, cp4 including since admission No falls in past 3 months (0 pts) Confusion or Disorientation No (0 pts) Intoxicated or Sedated No (0 pts) Impaired Gait No (0 pts) Mobility Assist Device Used No (0 pt) Altered Elimination No (0 pt) Score/Fall Risk Level 0 - 2 = Low Risk Oriented to surroundings, Maintained a safe environment, Assessed \T\ reinforced patient's understanding of fall precautions, Hourly rounding (assess needs \T\ fall precautionary measures) done. Abuse screen: Denies threats or abuse. Denies injuries from another. Nutritional screening: No deficits noted. Tuberculosis screening: No symptoms or risk factors identified. Assessment: 22:27 General: Appears in no apparent distress. uncomfortable, Behavior is calm, cooperative, cp4 appropriate for age. 22:27 Pain: Complains of pain in chest Pain does not radiate. Pain currently is 7 out of 10 cp4 on a pain scale. Pain began 2-3 days ago. Neuro: Level of Consciousness is awake, alert, obeys commands, Oriented to person, place, time, situation. Cardiovascular: Reports chest pain, shortness of breath, Heart tones S1 S2 Patient's skin is warm and dry. Rhythm is regular. Respiratory: Reports shortness of breath Airway is patent Respiratory effort is even, unlabored. GI: No signs and/or symptoms were reported involving the gastrointestinal system. : No signs and/or symptoms were reported regarding the genitourinary system. EENT: No signs and/or symptoms were reported regarding the EENT system. Derm: No signs and/or symptoms reported regarding the dermatologic system. Musculoskeletal: No signs and/or symptoms reported regarding the musculoskeletal system. 23:53 Reassessment: Patient and/or family updated on plan of care and expected duration. Pain ha1 level reassessed. Patient is alert, oriented x 3, equal unlabored respirations, skin warm/dry/pink. pain 5/10. Vital Signs: 21:10 BP 145 / 85; Pulse 84; Resp 18 S; Temp 98.2; Pulse Ox 100% on R/A; Weight 117.93 kg; ha1 Height 5 ft. 5 in. ; Pain 7/10; 22:30 BP 140 / 64; Pulse 86; Resp 18; Pulse Ox 96% ; cp4 23:54 BP 133 / 87; Pulse 82; Resp 16 S; Pulse Ox 98% on R/A; ha1 08/19 01:25 BP 104 / 69; Pulse 77; Resp 16; Pulse Ox 98% on R/A; dd2 08/18 21:10 Body Mass Index 43.27 (117.93 kg, 165.1 cm) ha1 08/18 21:10 Pain Scale: Adult [facility] ED Course: 08/18 21:02 Patient arrived in ED. gm2 21:11 Cee Bojorquez PA-C is PHCP. sb4 21:11 Pablo Ramos MD is Attending Physician. sb4 21:32 Test, Serum Sent. ha1 21:32 Basic Metabolic Panel Sent. ha1 21:32 CBC with Diff Sent. ha1 21:32 LFT's Sent. ha1 21:32 Magnesium Sent. ha1 21:32 NT PRO-BNP Sent. ha1 21:32 PT-INR Sent. ha1 21:32 Troponin HS Sent. ha1 21:34 Triage completed. ha1 21:42 XRAY Chest (1 view) In Process Unspecified. EDMS 22:21 Davina Espinosa is Primary Nurse. cp4 22:27 No provider procedures requiring assistance completed. Patient maintains SpO2 cp4 saturation greater than 95% on room air. 22:27 Bed in low position. Call light in reach. Side rails up X2. Client placed on continuous cp4 cardiac and pulse oximetry monitoring. NIBP monitoring applied. dispatcher refinery on. Pulse ox on. NIBP on. 23:36 Chest For PE Angio CT In Process Unspecified. EDMS 08/19 01:36 IV discontinued, intact, bleeding controlled, No redness/swelling at site. Pressure dd2 dressing applied. 01:36 Provided Education on: D/C AND F/U EDUCATION. dd2 01:37 Arm band placed on right wrist. dd2 Administered Medications: 08/18 22:26 Drug: Aspirin PO Chewable Tablet 324 mg PO once; 81 mg tablets x 4 Route: PO; ha1 23:00 Follow up: Response: No adverse reaction ha1 Medication: 22:27 VIS not applicable for this client. cp4 Outcome: 08/19 01:12 Discharge ordered by . sb4 01:36 Discharged to home ambulatory, dd2 01:36 Condition: stable 01:36 Discharge instructions given to patient, Instructed on discharge instructions, follow up and referral plans. Demonstrated understanding of instructions, follow-up care, 01:37 Patient left the ED. dd2 Signatures: Dispatcher [employer] Josi Rodríguez, RN RN Cee Trammell, PAKetan PAKetan turk4 Davina Espinosa cp4 Nelly Lino gm2 RAUL HOOVER RN RN dd2
[2024-08-19 03:10] VITALS: TEMP 98.2
[2024-08-19 03:12] VITALS: O2SAT 98
[2024-08-19 03:13] VITALS: BP 104/69
--- NOTE | 2024-08-21 11:08 | EKG ---
Test Date: 2024-08-18 Test Time: 21:16:39 Insurance Account Assistant: BERNABE MEASUREMENT RESULTS: Intervals: Rate: 86 UT: 158 QRSD: 90 QT: 366 QTc: 437 Mathews: P: 69 UT: 158 QRS: 51 T: 73 INTERPRETIVE STATEMENTS: Normal sinus rhythm Normal ECG No previous ECG available for comparison Electronically Signed On 08-21-24 11:01:52 CDT by Guille Ty
== END 2024-08-19 01:37 | disposition home or self-care (01) ==
LOC: ER 21:00
DX: R07.9 Chest pain, unspecified (principal); R06.02 Shortness of breath; R51.9 Headache, unspecified
CPT/HCPCS: 36415; 71045; 71275; 80048; 80076; 83735; 83880; 84484; 84703; 85025; 85610; 93005; 99284; Q9967